=== PATIENT | male | born 1950 | race Caucasian/White ===

== ENCOUNTER 2017-12-10 12:10 | Emergency (ER) | payer MEDICARE, OTHER ==
--- NOTE | 2017-12-10 13:08 | Emergency Department Record ---
History of Present Illness - General Chief Complaint: Laceration(s) Stated Complaint: LACERATION Time Seen by Provider: 12/10/17 13:08 Source: Patient Mode of Arrival: Ambulatory - History of Present Illness Initial Commments: the patient was using a new razor blade when it slipped and cut the back of his left thumb about 1 hour ago. He is UTD on his tetanus. Onset/Timin -: Minutes(s) Treatments Prior to Arrival: Other Treatment Prior to Arrival Comment:: pressure - [place] Coma Scale Eye Response: (4) Open spontaneously Motor Response: (6) Obeys commands Verbal Response: (5) Oriented [place] Total: 15 - Related Data Patient Tetanus UTD (within 5 yrs): Yes Home Medications Medication Instructions Recorded Confirmed Last Taken Bupropion HCl [Wellbutrin Xl] 300 mg PO QHS 12/10/17 12/10/17 12/09/17 Cetirizine HCl [Zyrtec] 10 mg PO DAILY 12/10/17 12/10/17 12/10/17 Cholecalciferol (Vitamin D3) 2,000 unit PO DAILY 12/10/17 12/10/17 12/10/17 [Vitamin D3] Cyclobenzaprine HCl 10 mg PO ASDIR 12/10/17 12/10/17 12/09/17 Glipizide 10 mg PO DAILY 12/10/17 12/10/17 12/10/17 Lisinopril 2.5 mg PO DAILY 12/10/17 12/10/17 12/10/17 Simvastatin [Zocor] 40 mg PO QHS 12/10/17 12/10/17 12/09/17 Allergies Allergy/AdvReac Type Severity Reaction Status Date / Time No Known Drug Allergies Allergy Verified 12/10/17 12:18 Travel Screening - Travel/Exposure Within Last 30 Days Have you traveled within the last 30 days?: No - Travel/Exposure Within Last Year Have you traveled outside the [place] in the last year?: No - Additonal Travel Details Have you been exposed to anyone with a communicable illness?: No - Travel Symptoms Symptom Screening: None Review of Systems Reviewed: No additional complaints except as noted below Constitutional: Reports: As per HPI. Denies: Chills, Fever, Malaise, Night sweats, Weakness, Weight change Eyes: Reports: As per HPI. Denies: Eye discharge, Eye pain, Photophobia, Vision change ENT: Reports: As per HPI. Denies: Congestion, Dental pain, Ear pain, Epistaxis , Hearing loss, Throat pain Respiratory: Reports: As per HPI. Denies: Cough, Dyspnea, Hemoptysis, Stridor, Wheezes Cardiovascular: Reports: As per HPI. Denies: Arrhythmia, Chest pain, Dyspnea on exertion, Edema, Murmurs, Orthopnea, Palpitations, Paroxysmal nocturnal dyspnea, Rheumatic Fever, Syncope Endocrine: Reports: As per HPI. Denies: Fatigue, Heat or cold intolerance, Polydipsia, Polyuria Gastrointestinal: Reports: As per HPI. Denies: Abdominal pain, Constipation, Diarrhea, Hematemesis, Hematochezia, Melena, Nausea, Vomiting Genitourinary: Reports: As per HPI. Denies: Dysuria, Frequency, Hematuria, Incontinence, Retention, Testicular pain, Testicular mass, Urgency Musculoskeletal: Reports: As per HPI. Denies: Arthralgia, Back pain, Gout, Joint swelling, Myalgia, Neck pain Skin: Reports: As per HPI. Denies: Bruising, Change in color, Change in hair/ nails, Lesions, Pruritus, Rash Neurological: Reports: As per HPI. Denies: Abnormal gait, Confusion, Headache, Numbness, Paresthesias, Seizure, Tingling, Tremors, Vertigo, Weakness Psychiatric: Reports: As per HPI. Denies: Anxiety, Auditory hallucinations, Depression, Homicidal thoughts, Suicidal thoughts, Visual hallucinations Hematological/Lymphatic: Reports: As per HPI. Denies: Anemia, Blood Clots, Easy bleeding, Easy bruising, Swollen glands Past Medical History - SOCIAL HISTORY Smoking Status: Never smoker Alcohol Use: None Drug Use: None - RESPIRATORY Hx Respiratory Disorders: No - CARDIOVASCULAR Hx Cardio Disorders: Yes Hx Hypertension: Yes - NEURO Hx Neuro Disorders: No - GI Hx GI Disorders: No - Hx Genitourinary Disorders: No - ENDOCRINE Hx Endocrine Disorders: Yes Hx Diabetes: Yes (Diet controlled) - MUSCULOSKELETAL Hx Musculoskeletal Disorders: Yes Hx Arthritis: Yes - PSYCH Hx Psych Problems: Yes Hx Depression: Yes - HEMATOLOGY/ONCOLOGY Hx Hematology/Oncology Disorders: Yes Hx Cancer: Yes (basal cell ca) Family Medical History Any Significant Family History?: No Physical Exam - General General Appearance: Alert, Oriented x3, Cooperative, No acute distress - Head Head exam: Normal inspection - Eye Eye exam: Normal appearance, PERRL Pupils: Normal accommodation - ENT ENT exam: Normal exam, Mucous membranes moist, Normal external ear exam, Normal orophraynx, TM's normal bilaterally Ear exam: Normal external inspection. negative: External canal tenderness Nasal Exam: Normal inspection. negative: Discharge, Sinus tenderness Mouth exam: Normal external inspection, Tongue normal Teeth exam: Normal inspection. negative: Dental caries Throat exam: Normal inspection. negative: Tonsillar erythema, Tonsillar exudate - Neck Neck exam: Normal inspection, Full ROM. negative: Tenderness - Respiratory Respiratory exam: Normal lung sounds bilaterally. negative: Respiratory distress - Cardiovascular Cardiovascular Exam: Regular rate, Normal rhythm, Normal heart sounds - GI/Abdominal GI/Abdominal exam: Soft, Normal bowel sounds. negative: Tenderness - Rectal Rectal exam: Deferred - exam: Deferred - Extremities Extremities exam: Normal inspection, Full ROM, Normal capillary refill. negative: Tenderness Image of Hand: 1 - razor-fine linear superficial lac to dorsal thumb with NO tendon involvement. CMS and ROM intact. - Back Back exam: Reports: Normal inspection, Full ROM. Denies: Muscle spasm, Rash noted, Tenderness - Neurological Neurological exam: Alert, Normal gait, Oriented X3, Reflexes normal - Psychiatric Psychiatric exam: Normal affect, Normal mood - Skin Skin exam: Dry, Intact, Normal color, Warm Course Vital Signs 12/10/17 12:10 Temperature 99.0 F Pulse Rate 86 Respiratory 16 Rate Blood Pressure 114/83 Pulse Ox 97 Medical Decision Making - Management Options MDM Management: No Additional Work-up Planned Disposition Disposition: Discharge Clinical Impression: Laceration of thumb Qualifiers: Encounter type: initial encounter Damage to nail status: without damage Foreign body presence: without foreign body Laterality: left Qualified Code(s): S61.012A - Laceration without foreign body of left thumb without damage to nail , initial encounter Disposition: Home, Self-Care Condition: (1) Good Instructions: Laceration (ED) Additional Instructions: Allow steri strips to wear off --7-10 days. Keep clean, dry, and covered. Forms: Patient Portal Access Quality - Quality Measures Quality Measures: N/A - Blood Pressure Screening Does Patient Have Any of the Following: No Blood Pressure Classification: Pre-Hypertensive BP Reading Systolic Measurement: 114 Diastolic Measurement: 83 Screening for High Blood Pressure: < Normal BP, F/U Not Required > [G8783]
== END 2017-12-10 13:37 | disposition home or self-care (01) ==
LOC: ER 12:10
DX: S61.012A Laceration without foreign body of left thumb without damage to nail, initial encounter (principal); W26.8XXA Contact with other sharp object(s), not elsewhere classified, initial encounter; I10 Essential (primary) hypertension
CPT/HCPCS: 99282

== ENCOUNTER 2018-10-25 19:19 | Emergency (ER) | payer MEDICARE, OTHER ==
[2018-10-25] MEDS ORDERED: ACETAMINOPHEN 500 MG TABLET PO ONE (19:42)
--- NOTE | 2018-10-25 19:42 | Emergency Department Record ---
History of Present Illness - General Chief complaint: Lower Extremity Pain Stated complaint: PIAIN IN RT LEG Time Seen by Provider: 10/25/18 19:28 Source: Patient Mode of Arrival: Ambulatory Limitations: No limitations - History of Present Illness Initial comments: 68 yo male presents with lateral right knee pain. He was getting up from the seated position two days ago and felt a pain with a pop sensation over the lateral right knee. The pain has persisted with moving and weight bearing. No swelling. No numbness, tingling or weakness. No fevers. He has mild chronic pain in the knee for about a year. No history of knee disease or prior surgery. MD Complaint: Joint pain (Right knee) Onset/Timin -: Days(s) Location: Right, Knee History of Same: No -: Yes Arthralgia Radiation: None Severity scale (1-10): 6 Quality: Dull Consistency: Constant Improves with: Nothing Worsens with: Rest, Walking, Weight bearing Associated Symptoms: Denies other symptoms - Related Data Allergies Allergy/AdvReac Type Severity Reaction Status Date / Time No Known Drug Allergies Allergy Verified 12/10/17 12:18 Travel Screening - Travel/Exposure Within Last 30 Days Have you traveled within the last 30 days?: No - Travel/Exposure Within Last Year Have you traveled outside the [place] in the last year?: No - Additonal Travel Details Have you been exposed to anyone with a communicable illness?: No - Travel Symptoms Symptom Screening: None Review of Systems Constitutional: Denies: Chills, Fever, Malaise, Weakness Eyes: Denies: Eye discharge ENT: Denies: Congestion, Throat pain Respiratory: Denies: Cough Cardiovascular: Denies: Chest pain Endocrine: Denies: Fatigue Gastrointestinal: Denies: Abdominal pain, Diarrhea, Nausea, Vomiting Musculoskeletal: Reports: Arthralgia, Myalgia. Denies: Back pain, Joint swelling, Neck pain Skin: Denies: Bruising, Change in color Neurological: Denies: Headache Psychiatric: Denies: Anxiety Hematological/Lymphatic: Denies: Blood Clots, Easy bleeding, Easy bruising Past Medical History - SOCIAL HISTORY Smoking Status: Former smoker Alcohol Use: None Drug Use: None - RESPIRATORY Hx Respiratory Disorders: Yes Hx Asthma: No Hx Bronchitis: Yes (hx of 20 yrs ago) Hx COPD: No Hx Pneumonia: No Hx Pulmonary Embolism: Yes (hx of 20 yrs ago) Hx Tuberculosis: No - CARDIOVASCULAR Hx Cardio Disorders: Yes Hx Abnormal EKG: No Hx Cardiac Cath: Yes (came back normal) Hx Chest Pain: No Hx CHF: No Hx Deep Vein Thrombosis: No Hx Edema: No Hx Heart Attack: No Hx Hypertension: No Hx Hypotension: Yes Hx Irregular Heartbeat: No Hx Palpitations: No Hx Pacemaker/Defib: No Hx Coronary Artery Disease: No Hx Coronary Artery Bypass Graft: No Hx Coronary Stent: No Comment:: high cholesterol - NEURO Hx Neuro Disorders: No Hx CVA: No Hx Dizziness: No Hx Headaches: No Hx of Migraines: No Hx Parkinson's Disease: No Hx Seizures: No Hx Speech Problem: No Hx TIA: No Hx Weakness: No - GI Hx GI Disorders: Yes Hx Abdominal Pain: No Hx Diverticulitis: No Hx Reflux: Yes Hx Hepatitis/Jaundice: No Hx Irritable Bowel: No Hx Liver Disease: No Hx Nausea/Vomiting: No Hx Pancreatitis: No Hx Ulcer: Yes Hx Cirrhosis: No Hx of Polyps: Yes (possibly) - Hx Genitourinary Disorders: No Hx Bladder Problem: No Hx Dialysis: No Hx Kidney Stones: No Hx Prostate Problems: No Hx Renal Disease: No Hx UTI: No - ENDOCRINE Hx Endocrine Disorders: Yes Hx Diabetes: Yes (medication) Hx Thyroid Disease: No - MUSCULOSKELETAL Hx Musculoskeletal Disorders: Yes Hx Arthritis: Yes Comment:: tendon surgery - PSYCH Hx Psych Problems: Yes Hx Depression: Yes (hx of when divorce) - HEMATOLOGY/ONCOLOGY Hx Hematology/Oncology Disorders: Yes Hx Cancer: Yes (basal cell ca) Family Medical History Any Significant Family History?: Yes Family Hx Comment (NOT TO BE USED IN PLACE OF ITEMS BELOW): Father - cancer Hx Cancer: Father Physical Exam - General General Appearance: Alert, Oriented x3, Cooperative, No acute distress Limitations: No limitations - Head Head exam: Atraumatic, Normal inspection - Eye Eye exam: Normal appearance. negative: Conjunctival injection - ENT ENT exam: Normal exam, Mucous membranes moist Ear exam: Normal external inspection Nasal Exam: Normal inspection Mouth exam: Normal external inspection - Neck Neck exam: Normal inspection - Cardiovascular Cardiovascular Exam: Regular rate, Normal rhythm, Normal heart sounds - GI/Abdominal GI/Abdominal exam: Soft. negative: Tenderness - Rectal Rectal exam: Deferred - exam: Deferred - Extremities Extremities exam: Normal inspection, Full ROM, Tenderness. negative: Calf tenderness, Joint swelling, Normal capillary refill, Pedal edema Image of Full Body: 1 - lateral joint line tenderness, no swelling, no redness, stable with anterior and posterior drawer. Pain with twisting. - Back Back exam: Denies: CVA tenderness (R), CVA tenderness (L) - Neurological Neurological exam: Alert, Oriented X3 - Psychiatric Psychiatric exam: negative: Agitated, Anxious - Skin Skin exam: Dry, Intact, Normal color, Warm. negative: Erythema Course Vital Signs 10/25/18 19:27 Temperature 98.3 F Pulse Rate 86 Respiratory 18 Rate Blood Pressure 119/78 Pulse Ox 98 - Reevaluation(s) Reevaluation #1: 10/25/18 20:18 The XR was reviewed. Degenerative changes noted throughout all three compartments. Lateral compartment changes noted. 10/25/18 20:19 10/25/18 20:[address] [facility] orthopedics. He has crutches and he will get a cane as well for support Disposition Disposition: Discharge Clinical Impression: Strain of knee and leg, right Disposition: Home, Self-Care Condition: (1) Good Instructions: Knee Pain (ED) Additional Instructions: Ice the knee to prevent swelling and to reduce pain You have been referred to Dr Motley for the one year of knee pain with the new pain you are now having Referrals: SERINA MOTLEY [DOCTOR OF OSTEOPATH] - [facility] Special[facility] [Provider Group] Forms: Patient Portal Access Time of Disposition: 20:28 Quality - Quality Measures Quality Measures: N/A - Blood Pressure Screening Does Patient Have Any of the Following: Active Dx of HTN Blood Pressure Classification: Pre-Hypertensive BP Reading Systolic Measurement: 135 Diastolic Measurement: 80 Screening for High Blood Pressure: Patient Exclusion, Hx of HTN [G9744]
--- NOTE | 2018-10-28 10:39 | RADIOLOGY REPORT ---
EXAM: RIGHT KNEE HISTORY: PAIN. TECHNIQUE: Four views of the right knee were performed. FINDINGS: There is tricompartmental joint space narrowing with hypertrophic spurring. Small joint effusion. No evidence of fracture or dislocation. IMPRESSION: TRICOMPARTMENTAL DEGENERATIVE CHANGE. SMALL JOINT EFFUSION. JOB NUMBER: [id number] MTDD
== END 2018-10-25 20:34 | disposition home or self-care (01) ==
LOC: ER 19:19
DX: S83.91XA Sprain of unspecified site of right knee, initial encounter (principal); X50.0XXA Overexertion from strenuous movement or load, initial encounter; Z87.891 Personal history of nicotine dependence
CPT/HCPCS: 99283

== ENCOUNTER 2018-11-01 07:30 | Day surgery (SDC) | payer MEDICARE, OTHER ==
[2018-11-01] MEDS ORDERED: PROPOFOL 10 MG/ML VIAL IV ONE (07:31)
[2018-11-01] MEDS ORDERED: FENTANYL PF 100MCG/2ML VIAL IV ONE (07:31)
[2018-11-01] MEDS ORDERED: LIDOCAINE 2% MDV (20MG/ML) 20ML VIAL IV ONE (07:31)
--- NOTE | 2018-11-06 11:30 | Operative Note ---
DATE OF SURGERY: 11/01/2018 SURGEON: Junior Metz MD OPERATION: ESOPHAGOGASTRODUODENOSCOPY. INDICATIONS: This is a This is a 68-year-old male with history of intermittent episodes of dysphagia who presented for esophagogastroduodenoscopy. POSTOPERATIVE DIAGNOSES: 1. Diffuse gastritis and duodenitis with mild duodenal stricture. 2. Normal esophagus with no specific strictures, status post Cuellar dilatation to 60-Kosovan and biopsies to rule out eosinophilic esophagitis. ANESTHESIA: Sedation is per Anesthesia. Pulse oximetry was monitored throughout the procedure to maintain O2 saturation of 90% or greater. Supplemental oxygen was administered via nasal cannula. Cardiac and vital signs were monitored throughout the duration of the procedure, and they were stable. The procedure of esophagogastroduodenoscopy and risks and benefits of the procedure, including the risk of bleeding and perforation, among others, were explained to the patient who voiced understanding and agreed to have the procedure done. Physical examination was performed, and the patient was found stable for sedation. PROCEDURE: The patient was placed in the left lateral position. Sedation was initiated. A plastic bite block was inserted into the oral cavity. The Olympus [id number] gastroscope was introduced into the oral cavity and advanced to the proximal esophagus without difficulty. The esophageal mucosa was carefully examined upon introduction of the gastroscope. The proximal and mid and distal esophageal mucosa appeared normal. The gastroscope was then advanced into the stomach, and surveillance of the stomach revealed diffuse erythema with erosions along the gastric body and antrum but no ulcers were noted. The gastroscope was then advanced to the descending duodenum without difficulty. The duodenal bulb and descending duodenum appeared mildly erythematous with mild duodenal stricture that was traversed with the gastroscope with no immediate complications. The gastroscope was then withdrawn into the stomach and retroflexion was performed. There were no other lesions noted. The gastroscope was then straightened and withdrawn while carefully examining the gastric and esophageal mucosa. No other lesions noted. Multiple gastric and mid esophageal biopsies were obtained. He remained with stable vital signs. Cuellar dilator size 60-Kosovan was advanced into the stomach with minimal resistance. The Cuellar dilator was then removed and the procedures were terminated. The patient tolerated procedure well without immediate complications. He remained with stable vital signs and was transferred to the recovery room. RECOMMENDATIONS: 1. The patient is to be on his proton pump inhibitors. 2. I would be happy to see him back in the office as needed. Thank you for allowing me to participate in the care of your patient. CC: Amrita BELTRAN
== END 2018-11-01 09:35 | disposition home or self-care (01) ==
LOC: HOP 07:30
PROVIDERS: ATTEND Internal Medicine Gastroenterology
DX: R13.10 Dysphagia, unspecified (principal); K29.70 Gastritis, unspecified, without bleeding; K29.80 Duodenitis without bleeding; K31.5 Obstruction of duodenum; I10 Essential (primary) hypertension; E78.00 Pure hypercholesterolemia, unspecified; E11.9 Type 2 diabetes mellitus without complications
CPT/HCPCS: 43239; 43450; 00731; 88305; J3010

== ENCOUNTER 2019-09-13 16:26 | Emergency (ER) | payer MEDICARE, OTHER ==
--- NOTE | 2019-09-13 16:48 | Emergency Department Record ---
History of Present Illness - General Chief Complaint: Dizziness Stated Complaint: DIZZINESS/NAUSEA Time Seen by Provider: 09/13/19 16:40 Source: Patient, RN notes reviewed Mode of Arrival: Ambulatory - History of Present Illness Initial Comments: spinning sensation when he moves his head. Complaint: Dizziness Onset/Timin -: Hour(s) Timing: Gradual onset Description: Difficulty walking, Lightheadedness, Off-balance History of Same: No History of Trauma: No Severity: Moderate Improves With: Remaining still Worsens With: Movement Associated Symptoms: Denies other symptoms - [place] Coma Scale Eye Response: (4) Open spontaneously Motor Response: (6) Obeys commands Verbal Response: (5) Oriented [place] Total: 15 - Related Data Home Medications Medication Instructions Recorded Confirmed Last Taken Nateglinide [Starlix] 60 mg PO TID 09/13/19 09/13/19 09/13/19 Allergies Allergy/AdvReac Type Severity Reaction Status Date / Time No Known Drug Allergies Allergy Verified 09/13/19 16:31 Travel Screening - Travel/Exposure Within Last 30 Days Have you traveled within the last 30 days?: No - Travel/Exposure Within Last Year Have you traveled outside the [place] in the last year?: No - Additonal Travel Details Have you been exposed to anyone with a communicable illness?: No - Travel Symptoms Symptom Screening: None Review of Systems Reviewed: No additional complaints except as noted below Constitutional: Reports: As per HPI. Denies: Chills, Fever, Malaise, Night sweats, Weakness, Weight change Eyes: Reports: As per HPI. Denies: Eye discharge, Eye pain, Photophobia, Vision change ENT: Reports: As per HPI. Denies: Congestion, Dental pain, Ear pain, Epistaxis, Hearing loss, Throat pain Respiratory: Reports: As per HPI. Denies: Cough, Dyspnea, Hemoptysis, Stridor, Wheezes Cardiovascular: Reports: As per HPI. Denies: Arrhythmia, Chest pain, Dyspnea on exertion, Edema, Murmurs, Orthopnea, Palpitations, Paroxysmal nocturnal dyspnea, Rheumatic Fever, Syncope Endocrine: Reports: As per HPI. Denies: Fatigue, Heat or cold intolerance, Polydipsia, Polyuria Gastrointestinal: Reports: As per HPI. Denies: Abdominal pain, Constipation, Diarrhea, Hematemesis, Hematochezia, Melena, Nausea, Vomiting Genitourinary: Reports: As per HPI. Denies: Dysuria, Frequency, Hematuria, Incontinence, Retention, Testicular pain, Testicular mass, Urgency Musculoskeletal: Reports: As per HPI. Denies: Arthralgia, Back pain, Gout, Joint swelling, Myalgia, Neck pain Skin: Reports: As per HPI. Denies: Bruising, Change in color, Change in hair/nails, Lesions, Pruritus, Rash Neurological: Reports: As per HPI. Denies: Abnormal gait, Confusion, Headache, Numbness, Paresthesias, Seizure, Tingling, Tremors, Vertigo, Weakness Psychiatric: Reports: As per HPI. Denies: Anxiety, Auditory hallucinations, Depression, Homicidal thoughts, Suicidal thoughts, Visual hallucinations Hematological/Lymphatic: Reports: As per HPI. Denies: Anemia, Blood Clots, Easy bleeding, Easy bruising, Swollen glands Past Medical History - SOCIAL HISTORY Smoking Status: Former smoker Alcohol Use: None Drug Use: None - RESPIRATORY Hx Respiratory Disorders: Yes Hx Asthma: No Hx Bronchitis: Yes (hx of 20 yrs ago) Hx COPD: No Hx Pneumonia: No Hx Pulmonary Embolism: Yes (hx of 20 yrs ago) Hx Tuberculosis: No - CARDIOVASCULAR Hx Cardio Disorders: Yes Hx Hypertension: No Comment:: high cholesterol - NEURO Hx Neuro Disorders: No Hx CVA: No Hx Dizziness: No Hx Headaches: No Hx of Migraines: No Hx Parkinson's Disease: No Hx Seizures: No Hx Speech Problem: No Hx TIA: No Hx Weakness: No - GI Hx GI Disorders: Yes Hx Abdominal Pain: No Hx Diverticulitis: No Hx Reflux: Yes Hx Hepatitis/Jaundice: No Hx Irritable Bowel: No Hx Liver Disease: No Hx Nausea/Vomiting: No Hx Pancreatitis: No Hx Ulcer: Yes Hx Cirrhosis: No Hx of Polyps: Yes (possibly) - Hx Genitourinary Disorders: No Hx Bladder Problem: No Hx Dialysis: No Hx Kidney Stones: No Hx Prostate Problems: No Hx Renal Disease: No Hx UTI: No - ENDOCRINE Hx Endocrine Disorders: Yes Hx Diabetes: Yes (medication) Hx Thyroid Disease: No - MUSCULOSKELETAL Hx Musculoskeletal Disorders: Yes Hx Arthritis: Yes Comment:: tendon surgery - PSYCH Hx Psych Problems: Yes Hx Depression: Yes (hx of when divorce) - HEMATOLOGY/ONCOLOGY Hx Hematology/Oncology Disorders: Yes Hx Cancer: Yes (basal cell ca) Family Medical History Any Significant Family History?: Yes Family Hx Comment (NOT TO BE USED IN PLACE OF ITEMS BELOW): Father - cancer Hx Cancer: Father Physical Exam - General General Appearance: Alert, Oriented x3, Cooperative, No acute distress - Head Head exam: Normal inspection - Eye Eye exam: Normal appearance, PERRL Pupils: Normal accommodation - ENT ENT exam: Normal exam, Mucous membranes moist, Normal external ear exam, Normal orophraynx, TM's normal bilaterally Ear exam: Normal external inspection. negative: External canal tenderness Nasal Exam: Normal inspection. negative: Discharge, Sinus tenderness Mouth exam: Normal external inspection, Tongue normal Teeth exam: Normal inspection. negative: Dental caries Throat exam: Normal inspection. negative: Tonsillar erythema, Tonsillar exudate - Neck Neck exam: Normal inspection, Full ROM. negative: Tenderness - Respiratory Respiratory exam: Normal lung sounds bilaterally. negative: Respiratory distress - Cardiovascular Cardiovascular Exam: Regular rate, Normal rhythm, Normal heart sounds - GI/Abdominal GI/Abdominal exam: Soft, Normal bowel sounds. negative: Tenderness - Rectal Rectal exam: Deferred - exam: Deferred - Extremities Extremities exam: Normal inspection, Full ROM, Normal capillary refill. negative: Tenderness - Back Back exam: Reports: Normal inspection, Full ROM. Denies: Muscle spasm, Rash noted, Tenderness - Neurological Neurological exam: Alert, Normal gait, Oriented X3, Reflexes normal - Psychiatric Psychiatric exam: Normal affect, Normal mood - Skin Skin exam: Dry, Intact, Normal color, Warm Course Vital Signs 09/13/19 16:34 Temperature 98.7 F Pulse Rate 86 Respiratory 20 Rate Blood Pressure 120/84 Pulse Ox 97 Disposition Quality - Blood Pressure Screening Does Patient Have Any of the Following: No Blood Pressure Classification: Pre-Hypertensive BP Reading Systolic Measurement: 120 Diastolic Measurement: 84 Screening for High Blood Pressure: < Pre-Hypertensive BP, F/U Documented > [G8950]
[2019-09-13] MEDS ORDERED: MECLIZINE 25 MG TABLET PO ONE ×2 (18:08→19:47)
--- NOTE | 2019-09-13 18:16 | Emergency Department Record ---
History of Present Illness - General Chief Complaint: Dizziness Stated Complaint: DIZZINESS/NAUSEA Time Seen by Provider: 09/13/19 16:40 Source: Patient, Family, RN notes reviewed Mode of Arrival: Ambulatory Limitations: No limitations - History of Present Illness Initial Comments: 69 yo male presents with symptoms of feeling being lightheaded and dizzy. The onset was 1pm. He had been cutting wood just prior but did not have symptoms at that time or feel like he was over exerting. He has a very mild, vague feeling of dizziness and being lightheaded. The symptoms seem to occur with turning of the head or moving. He is not uncomfortable sitting. He feels like the top of his "head is numb" but it feels normal to the tough. No headache or pain, no vision changes, no speech changes, no weakness. No dysarthria. No memory changes. He is better if still. No chest pain, shortness of breath, or syncope. No palpitations. His PCP is Dr Joel. No history of stroke, CAD. He has DM. No recent changes in his health. He has been dealing with chronic right knee pain. He follows with Dr Waterbrook. MENSAH Complaint: Dizziness, Lightheadedness Onset/Timin -: Hour(s) Timing: Gradual onset Description: Difficulty walking, Lightheadedness, Off-balance History of Same: No History of Trauma: No Severity: Moderate Improves With: Remaining still Worsens With: Movement Associated Symptoms: Denies other symptoms - [place] Coma Scale Eye Response: (4) Open spontaneously Motor Response: (6) Obeys commands Verbal Response: (5) Oriented [place] Total: 15 - Symptoms of Stroke Symptoms of stroke: Dizziness - Related Data Home Medications Medication Instructions Recorded Confirmed Last Taken Nateglinide [Starlix] 60 mg PO TID 09/13/19 09/13/19 09/13/19 Previous Rx's Medication Instructions Recorded Meclizine HCl [Antivert] 25 mg PO Q8H #15 tablet 09/13/19 Allergies Allergy/AdvReac Type Severity Reaction Status Date / Time No Known Drug Allergies Allergy Verified 09/13/19 16:31 Travel Screening - Travel/Exposure Within Last 30 Days Have you traveled within the last 30 days?: No - Travel/Exposure Within Last Year Have you traveled outside the [place] in the last year?: No - Additonal Travel Details Have you been exposed to anyone with a communicable illness?: No - Travel Symptoms Symptom Screening: None Review of Systems Constitutional: Denies: Chills, Fever, Malaise, Night sweats, Weakness, Weight change Eyes: Denies: Eye discharge, Eye pain, Photophobia, Vision change ENT: Denies: Congestion, Dental pain, Ear pain, Epistaxis, Hearing loss, Throat pain Respiratory: Denies: Cough, Dyspnea, Hemoptysis, Stridor, Wheezes Cardiovascular: Denies: Arrhythmia, Chest pain, Dyspnea on exertion, Edema, Murmurs, Orthopnea, Palpitations, Syncope Endocrine: Denies: Fatigue, Polydipsia, Polyuria Gastrointestinal: Denies: Abdominal pain, Constipation, Diarrhea, Nausea, Vomiting Genitourinary: Denies: Dysuria, Frequency, Hematuria, Retention, Urgency Musculoskeletal: Reports: Arthralgia (chronic right knee pain). Denies: Back pain, Gout, Joint swelling, Myalgia, Neck pain Skin: Denies: Bruising, Change in color, Rash Neurological: Reports: As per HPI, Abnormal gait, Vertigo. Denies: Confusion, Headache, Numbness, Paresthesias, Seizure, Tingling, Tremors, Weakness Psychiatric: Denies: Anxiety Hematological/Lymphatic: Reports: As per HPI. Denies: Anemia, Blood Clots, Easy bleeding, Easy bruising Past Medical History - SOCIAL HISTORY Smoking Status: Former smoker Alcohol Use: None Drug Use: None - RESPIRATORY Hx Respiratory Disorders: Yes Hx Asthma: No Hx Bronchitis: Yes (hx of 20 yrs ago) Hx COPD: No Hx Pneumonia: No Hx Pulmonary Embolism: Yes (hx of 20 yrs ago) Hx Tuberculosis: No - CARDIOVASCULAR Hx Cardio Disorders: Yes Hx Hypertension: No Comment:: high cholesterol - NEURO Hx Neuro Disorders: No Hx CVA: No Hx Dizziness: No Hx Headaches: No Hx of Migraines: No Hx Parkinson's Disease: No Hx Seizures: No Hx Speech Problem: No Hx TIA: No Hx Weakness: No - GI Hx GI Disorders: Yes Hx Abdominal Pain: No Hx Diverticulitis: No Hx Reflux: Yes Hx Hepatitis/Jaundice: No Hx Irritable Bowel: No Hx Liver Disease: No Hx Nausea/Vomiting: No Hx Pancreatitis: No Hx Ulcer: Yes Hx Cirrhosis: No Hx of Polyps: Yes (possibly) - Hx Genitourinary Disorders: No Hx Bladder Problem: No Hx Dialysis: No Hx Kidney Stones: No Hx Prostate Problems: No Hx Renal Disease: No Hx UTI: No - ENDOCRINE Hx Endocrine Disorders: Yes Hx Diabetes: Yes (medication) Hx Thyroid Disease: No - MUSCULOSKELETAL Hx Musculoskeletal Disorders: Yes Hx Arthritis: Yes Comment:: tendon surgery - PSYCH Hx Psych Problems: Yes Hx Depression: Yes (hx of when divorce) - HEMATOLOGY/ONCOLOGY Hx Hematology/Oncology Disorders: Yes Hx Cancer: Yes (basal cell ca) Family Medical History Any Significant Family History?: Yes Family Hx Comment (NOT TO BE USED IN PLACE OF ITEMS BELOW): Father - cancer Hx Cancer: Father Physical Exam - General General Appearance: Alert, Oriented x3, Cooperative, No acute distress Limitations: No limitations - Head Head exam: Atraumatic, Normocephalic, Normal inspection - Eye Eye exam: Normal appearance, PERRL, EOMI. negative: Conjunctival injection, Nystagmus, Periorbital swelling, Periorbital tenderness, Scleral icterus Pupils: Normal accommodation. negative: Irregular, Unequal - ENT ENT exam: Normal exam, Mucous membranes moist, Normal orophraynx Ear exam: Normal external inspection Nasal Exam: Normal inspection Mouth exam: Normal external inspection Throat exam: Normal inspection - Neck Neck exam: Normal inspection, Full ROM. negative: Lymphadenopathy, Meningismus, Tenderness - Respiratory Respiratory exam: Normal lung sounds bilaterally. negative: Respiratory distr ess, Rhonchi, Stridor, Wheezes - Cardiovascular Cardiovascular Exam: Regular rate, Normal rhythm, Normal heart sounds Peripheral Pulses: 2+: Radial (R), Radial (L) - GI/Abdominal GI/Abdominal exam: Soft. negative: Tenderness - Rectal Rectal exam: Deferred - exam: Deferred - Extremities Extremities exam: Normal inspection, Tenderness (knee). negative: Calf tenderness, Pedal edema - Back Back exam: Denies: CVA tenderness (R), CVA tenderness (L) - Neurological Neurological exam: Alert, CN II-XII intact, Normal gait (ambulated normally in the ED. Only limitation was right knee pain), Oriented X3, Other (No PND, No Ataxia, No vision field deficits, ). negative: Abnormal gait, Altered, Motor sensory deficit - Psychiatric Psychiatric exam: Normal affect, Normal mood. negative: Agitated, Anxious - Skin Skin exam: Dry, Intact, Normal color, Warm Course Vital Signs 09/13/19 16:34 Temperature 98.7 F Pulse Rate 86 Respiratory 20 Rate Blood Pressure 120/84 Pulse Ox 97 - Reevaluation(s) Reevaluation #1: 09/13/19 18:16 EKG 18:03 Rate 75 Intervals QRS [address] No acute changes Prior none 09/13/19 18:30 The CBC is normal 09/13/19 18:49 The CMP was reviewed. No acute changes except glucose 191 09/13/19 18:52 The HCT scan report was reviewed. No acute intracranial process. Atrophy. Re tention cyst. 09/13/19 19:02 The patient ambulated to the restroom without limitation or difficulty except his chronic right knee pain. 09/13/19 19:16 09/13/19 19:46 On recheck the patient feels greatly improved after the antivert Repeat vitals are in the normal range I had a long discussion. The symptoms are very mild and not specific for a certain cause. No reproducible symptoms on examination. He does not have any firm finding to strongly suggest strong, arrhythmia, anemia, ACS. He has a mild vague feeling that is not reproducible on examination and better with antivert. I do not think this is currently a sign of stroke and I explained that it is likely benign with the patient and family, but we did discuss that it is always possible this is early and just the first symptom of something else so options include observation vs DC home and return if the symptoms return. He and his discussed this and the options. He lives close, has minimal to no symptoms, a very supportive family and prefers DC. He will call his PCP Sunday. We discussed at length reasons for immediate return to the ED. I also encourage him to discuss with his doctor the medical clearance for his an ticipated knee surgery. 09/13/19 19:49 Medical Decision Making - Lab Data Result diagrams: 09/13/19 16:40 09/13/19 16:40 Disposition Disposition: Discharge Clinical Impression: Dizziness Disposition: Home, Self-Care Condition: (1) Good Instructions: Dizziness (ED) Additional Instructions: Review this ER visit and the tests performed with your family doctor first of the week Call your doctor for the next available follow up appointment. Call on Sunday Return to the ER for a recheck immediately if any symptoms return or any other symptoms that we discussed occur Take the prescriptions provided as directed Prescriptions: Meclizine HCl [Antivert] 25 mg PO Q8H #15 tablet Forms: Patient Portal Access Time of Disposition: 19:51 Quality - Quality Measures Quality Measures: N/A - Blood Pressure Screening Does Patient Have Any of the Following: Active Dx of HTN Blood Pressure Classification: Pre-Hypertensive BP Reading Systolic Measurement: 120 Diastolic Measurement: 84 Screening for High Blood Pressure: Patient Exclusion, Hx of HTN [G9744] Pre-Hypertensive Follow-up Interventions: Referral to alternative/primary care provider.
[2019-09-13 18:26] LABS: ABSOLUTE NEUTROPHIL COUNT 3.49; BASO % 0.5 % (0-6); EOS % 3.3 % (0-6); GRAN % 57.9 % (47-80); HEMATOCRIT 46.3 % (42.0-52.0); HEMOGLOBIN 15.9 gm/dl (14.0-18.0); LYMPH % 29.7 % (16-45); MEAN CELL VOLUME 91.9 fl (81-97); MEAN CORPUSCULAR HEMOGLOBIN 31.5 pg (27-33); MEAN CORPUSCULAR HGB CONC 34.3 g/dl (32-36); MONO % 8.6 % (0-9); PLATELET COUNT 207 K/uL (130-400); RED BLOOD COUNT 5.04 M/uL (4.40-5.70); RED CELL DISTRIBUTION WIDTH 12.6 % (11.5-14.5)
[2019-09-13 18:41] LABS: BLOOD UREA NITROGEN 16 mg/dL (8-23); CREATININE 0.9 mg/dL (0.7-1.2); EST GLOMERULAR FILTRATION RATE > 60 mL/min
[2019-09-13 18:42] LABS: TOTAL PROTEIN 7.4 g/dL (6.6-8.7)
[2019-09-13 18:44] LABS: GLUCOSE,RANDOM 191 mg/dL (74-109)
[2019-09-13 18:46] LABS: ALB/GLOB RATIO 1.7 (1.1-1.8); ALBUMIN 4.7 g/dL (4.0-5.0); ALT/SGPT 22 U/L (<41); AST/SGOT 23 U/L (10.0-50.0)
[2019-09-13 18:47] LABS: ALKALINE PHOSPHATASE 88 U/L (40-129)
--- NOTE | 2019-09-13 18:48 | CT SCAN REPORT ---
EXAMINATION: CT Head without IV Contrast EXAM DATE: 09/13/2019 6:40 PM TECHNIQUE: Standard protocol CT images of the head were obtained without intravenous contrast. Holm l and sagittal reconstructed images were created. INDICATION: lightheaded and dizzy COMPARISON: None HAND DOMINANCE: Right. ENCOUNTER: Not applicable FINDINGS: 1. There is no intracranial mass, midline shift, extraaxial fluid collection or hemorrhage. 2. The ventricles, sulci and cisterns are normal. 3. Moderate generalized atrophy the brain. No abnormal attenuation in the white matter of the cerebr al hemispheres. No CT evidence of acute infarct. 4. There is no fracture. 5. Bilateral lens implants. Paranasal sinuses reveal small mucous retention cyst in the left maxilla ry sinus measuring 1.5 cm. Mastoid air cells are clear. IMPRESSION: 1. Moderate generalized atrophy of the brain. No acute intracranial process. 2. Small mucous retention cyst in the left maxillary sinus. Dictated by: Bernardino Mendez MD on 09/13/2019 6:44 PM. .
== END 2019-09-13 20:09 | disposition home or self-care (01) ==
LOC: ER 16:26
DX: R42 Dizziness and giddiness (principal); R11.0 Nausea; R20.0 Anesthesia of skin; E11.9 Type 2 diabetes mellitus without complications; R26.2 Difficulty in walking, not elsewhere classified; Z87.891 Personal history of nicotine dependence; Z79.84 Long term (current) use of oral hypoglycemic drugs
CPT/HCPCS: 70450; 80053; 85025; 93005; 93010; 99284

== ENCOUNTER 2019-09-14 00:21 | Observation (INO) | payer MEDICARE, OTHER ==
--- NOTE | 2019-09-14 00:41 | Emergency Department Record ---
History of Present Illness - General Chief complaint: Allergic Reaction Stated complaint: MATEO Time Seen by Provider: 09/14/19 00:29 Source: Patient, Family Mode of Arrival: Ambulatory Limitations: No limitations - History of Present Illness Initial Comments: 69 yo male presents with shaking chills that started at midnight. He reports that he could not get warm. He is not aware of any fever. He was seen in the ED earlier with a lightheaded dizzy feeling that resolved and has not returned. He now mentions that he has had three days of right upper gum tenderness and swelling and is concerned about possible infection. He has been pressing on the area without expression of pus but it is tender to the touch and swollen. No cough. No dizziness. No nausea, vomiting or diarrhea. No rash or hives. No dysuria. Dr Joel is his doctor. Complaint: Other (shaking and chills) Onset/Timin -: Minutes(s) Exposure: Medication Symptoms: Nausea Treatment Prior to Arrival: None Previous Allergy History: None - Related Data Previous Rx's Medication Instructions Recorded Meclizine HCl [Antivert] 25 mg PO Q8H #15 tablet 09/13/19 Allergies Allergy/AdvReac Type Severity Reaction Status Date / Time No Known Drug Allergies Allergy Verified 09/13/19 16:31 Travel Screening - Travel/Exposure Within Last 30 Days Have you traveled within the last 30 days?: No - Travel/Exposure Within Last Year Have you traveled outside the [place] in the last year?: No - Additonal Travel Details Have you been exposed to anyone with a communicable illness?: No Review of Systems Constitutional: Reports: Chills, Malaise, Weakness Eyes: Denies: Eye discharge ENT: Denies: Congestion, Throat pain Respiratory: Denies: Cough, Dyspnea, Hemoptysis, Stridor, Wheezes Cardiovascular: Denies: Chest pain, Syncope Endocrine: Reports: Fatigue Gastrointestinal: Denies: Abdominal pain, Diarrhea, Nausea, Vomiting Genitourinary: Denies: Dysuria, Frequency, Hematuria Musculoskeletal: Reports: Arthralgia (chronic right knee pain). Denies: Back pain, Myalgia Skin: Denies: Bruising, Change in color, Rash Neurological: Reports: Vertigo. Denies: Abnormal gait, Confusion, Headache, Numbness, Paresthesias, Tingling, Tremors, Weakness Psychiatric: Denies: Anxiety Hematological/Lymphatic: Denies: Easy bleeding, Easy bruising Past Medical History - SOCIAL HISTORY Smoking Status: Former smoker Alcohol Use: None Drug Use: None - RESPIRATORY Hx Respiratory Disorders: Yes Hx Asthma: No Hx Bronchitis: Yes (hx of 20 yrs ago) Hx COPD: No Hx Pneumonia: No Hx Pulmonary Embolism: Yes (hx of 20 yrs ago) Hx Tuberculosis: No - CARDIOVASCULAR Hx Cardio Disorders: Yes Hx Hypertension: No Comment:: high cholesterol - NEURO Hx Neuro Disorders: No Hx CVA: No Hx Dizziness: No Hx Headaches: No Hx of Migraines: No Hx Parkinson's Disease: No Hx Seizures: No Hx Speech Problem: No Hx TIA: No Hx Weakness: No - GI Hx GI Disorders: Yes Hx Abdominal Pain: No Hx Diverticulitis: No Hx Reflux: Yes Hx Hepatitis/Jaundice: No Hx Irritable Bowel: No Hx Liver Disease: No Hx Nausea/Vomiting: No Hx Pancreatitis: No Hx Ulcer: Yes Hx Cirrhosis: No Hx of Polyps: Yes (possibly) - Hx Genitourinary Disorders: No Hx Bladder Problem: No Hx Dialysis: No Hx Kidney Stones: No Hx Prostate Problems: No Hx Renal Disease: No Hx UTI: No - ENDOCRINE Hx Endocrine Disorders: Yes Hx Diabetes: Yes (medication) Hx Thyroid Disease: No - MUSCULOSKELETAL Hx Musculoskeletal Disorders: Yes Hx Arthritis: Yes Comment:: tendon surgery - PSYCH Hx Psych Problems: Yes Hx Depression: Yes (hx of when divorce) - HEMATOLOGY/ONCOLOGY Hx Hematology/Oncology Disorders: Yes Hx Cancer: Yes (basal cell ca) Family Medical History Any Significant Family History?: No Family Hx Comment (NOT TO BE USED IN PLACE OF ITEMS BELOW): Father - cancer Hx Cancer: Father Physical Exam - General General Appearance: Alert, Oriented x3, Cooperative, No acute distress Limitations: No limitations - Head Head exam: Atraumatic, Normocephalic, Normal inspection - Eye Eye exam: Normal appearance, PERRL. negative: Conjunctival injection, Scleral icterus - ENT ENT exam: Mucous membranes moist. negative: Normal exam, Mucous membranes dry, Normal orophraynx Ear exam: Normal external inspection Nasal Exam: Normal inspection Mouth exam: Tongue normal. negative: Drooling, Laceration, Muffled voice, Tongue elevation Teeth exam: Dental tenderness #, Gingival enlargement (tenderness and swelling right upper in the area of teeth 5, 6 and 7 consistent with infection). negative: Normal inspection Throat exam: Normal inspection. negative: Tonsillar erythema, Tonsillomegaly, Tonsillar exudate, L peritonsillar mass Image of Mouth/Teeth: 1 - gum swelling and tenderness, no pus expressed - Neck Neck exam: negative: Lymphadenopathy, Meningismus, Tenderness - Respiratory Respiratory exam: Normal lung sounds bilaterally. negative: Respiratory distress, Rhonchi, Stridor, Wheezes - Cardiovascular Cardiovascular Exam: Normal rhythm, Normal heart sounds, Tachycardia Peripheral Pulses: 2+: Radial (R), Radial (L) - GI/Abdominal GI/Abdominal exam: Soft. negative: Tenderness - Rectal Rectal exam: Deferred - exam: Deferred - Extremities Extremities exam: Normal inspection - Back Back exam: Denies: CVA tenderness (R), CVA tenderness (L), Tenderness - Neurological Neurological exam: Alert, CN II-XII intact, Normal gait, Oriented X3. negative: Abnormal gait, Altered, Motor sensory deficit - Psychiatric Psychiatric exam: Normal affect, Normal mood - Skin Skin exam: Dry, Intact, Normal color, Warm Course Vital Signs 09/14/19 00:24 Temperature 98.4 F Pulse Rate 122 H Respiratory 20 Rate Blood Pressure 135/99 Pulse Ox 97 - Reevaluation(s) Reevaluation #1: 09/14/19 01:48 The CBC was reviewed Normal WBC but 81% N 9% Bands Temp 99.8 He did have Motrin prior to arrival Based on his examination and the tender swollen area over the right upper gums I believe his symptoms are possibly from a dental infection at this time. UA was requested Given the shaking chills blood cultures were obtained He will be placed on antibiotics for the oral/dental infection and admitted for observation. 09/14/19 01:51 09/14/19 02:07 UA obtained. HR improved to 101. Systolic BP 159/103 09/14/19 02:24 UA is normal Observation orders placed Medical Decision Making - Lab Data Result diagrams: 09/15/19 06:22 09/14/19 09:42 Disposition Disposition: Admit Clinical Impression: Dental infection, Cellulitis of oral soft tissues Disposition: Still a Patient at [facility] Decision to Admit: Admit from ER Decision to Admit Date: 09/14/19 Decision to Admit Time: :07 Condition: (2) Stable Time of Disposition: :07 Quality - Quality Measures Quality Measures: N/A - Blood Pressure Screening Does Patient Have Any of the Following: Active Dx of HTN Blood Pressure Classification: Hypertensive Reading Systolic Measurement: 135 Diastolic Measurement: 99 Screening for High Blood Pressure: Patient Exclusion, Hx of HTN [G9744]
[2019-09-14 01:13] LABS: ABSOLUTE NEUTROPHIL COUNT 10.01; BASO % 0.3 % (0-6); EOS % 1.1 % (0-6); HEMATOCRIT 46.5 % (42.0-52.0); HEMOGLOBIN 15.7 gm/dl (14.0-18.0); LYMPH % 5.3 % (16-45); MEAN CELL VOLUME 92.1 fl (81-97); MEAN CORPUSCULAR HEMOGLOBIN 31.1 pg (27-33); MEAN CORPUSCULAR HGB CONC 33.8 g/dl (32-36); MEAN PLATELET VOLUME 9.2 fl (7.4-10.4); MONO % 2.3 % (0-9); PLATELET COUNT 173 K/uL (130-400); RED BLOOD COUNT 5.05 M/uL (4.40-5.70); RED CELL DISTRIBUTION WIDTH 12.5 % (11.5-14.5)
[2019-09-14] MEDS ORDERED: ACETAMINOPHEN 1,000 MG/100 ML BTL IVPB ONE (01:14)
[2019-09-14 01:46] LABS: PLATELET ESTIMATE NORMAL (NORMAL); TOXIC GRANULATION 1+
[2019-09-14] MEDS ORDERED: AMPICILLIN SODIUM/SULBACTAM NA 3 G in 0.9 % SODIUM CHLORIDE 100ML 100 ML IVPB ONE (01:48)
[2019-09-14 02:12] LABS: URINE APPEARANCE CLEAR; URINE BILIRUBIN NEGATIVE (NEGATIVE); URINE BLOOD NEGATIVE (NEGATIVE); URINE COLOR YELLOW; URINE KETONE NEGATIVE (NEGATIVE); URINE LEUKOCYTE ESTERASE NEGATIVE (NEGATIVE); URINE NITRITE NEGATIVE (NEGATIVE); URINE PROTEIN NEGATIVE (NEGATIVE); URINE UROBILINOGEN 0.2 E.U./dL (0.20 - 1.00)
[2019-09-14] MEDS ORDERED: AMPICILLIN SODIUM/SULBACTAM NA 1.5 G in 0.9 % SODIUM CHLORIDE 100ML 100 ML IVPB SCH (02:48)
[2019-09-14] MEDS ORDERED: ACETAMINOPHEN 500 MG TABLET PO PRN (02:48)
[2019-09-14] MEDS: 0.9 % SODIUM CHLORIDE 1000ML 1,000 ML IV ONE ×4 (02:56→03:15)
[2019-09-14] MEDS ORDERED: FLU VAC QS 2019-20 (INPT, 6MO+) 60MCG/0.5ML IM ONE (03:09)
[2019-09-14] MEDS: AMPICILLIN SODIUM/SULBACTAM NA 1.5 G in 0.9 % SODIUM CHLORIDE 100ML 100 ML IVPB SCH ×3 (08:38→19:41)
[2019-09-14] MEDS: LISINOPRIL 5 MG TABLET PO SCH (09:42)
[2019-09-14 09:43] LABS: HEMATOCRIT 40.9 % (42.0-52.0); HEMOGLOBIN 14.1 gm/dl (14.0-18.0); MEAN CELL VOLUME 91.5 fl (81-97); MEAN CORPUSCULAR HEMOGLOBIN 31.5 pg (27-33); MEAN CORPUSCULAR HGB CONC 34.5 g/dl (32-36); PLATELET COUNT 155 K/uL (130-400); RED BLOOD COUNT 4.47 M/uL (4.40-5.70); RED CELL DISTRIBUTION WIDTH 12.6 % (11.5-14.5); WHITE BLOOD COUNT W/O DIFF 10.4 K/uL (4.2-12.2)
[2019-09-14 10:00] LABS: BLOOD UREA NITROGEN 13 mg/dL (8-23); CREATININE 0.8 mg/dL (0.7-1.2); EST GLOMERULAR FILTRATION RATE > 60 mL/min; GLUCOSE,RANDOM 206 mg/dL (74-109)
[2019-09-14] MEDS ORDERED: GLIPIZIDE 5 MG TABLET PO SCH (10:00)
--- NOTE | 2019-09-14 11:13 | History & Physical ---
History of Present Illness - Date of Service Date of Service for History & Physical: 09/14/19 - History of Present Illness Admitting Diagnosis: oral cellulitis, dental infection History of Present Illness: 69 year old male patient presented to ED twice yesterday for differing complaints. Initial evaluation was for sudden onset dizziness. Patient repor ivanna dizziness upon standing that began around 1pm. Patient denied any chest pain, shortness of breath, syncope, or nausea with the dizziness. Reported symptoms to improve upon sitting. Workup at that time included an unremarkable CBC and CMP. Head CT indicated no intracranial mass, midline shift, extraaxial fluid collection or hemorrhage. EKG: rate 75, no acute ST changes. Patient was discharged home with Meclizine due to negative workup. Patient then returned later that night due to onset of chills. Patient noted to be shaking uncontrollably at home by , which started around midnight. Patient did not check his temperature at that time. Patient noted that the dizziness previously evaluated for had resolved. Patient did recall right upper gum tenderness for the past 3 days that he was treating with peroxide rinses at home. Patient denied noting any drainage from the affected area or previous abscess. Patient denied cough, vomiting, diarrhea, or urinary symptoms. Robyn ent's past medical history is significant for diabetes, high cholesterol, and multiple orthopedic surgeries. PCP: Dr. Joel ED Course: CBC: WBC 11 with neutrophils 81, bands 9 UA: negative Temp 99.8F Blood cultures drawn Started Unasyn 3gm in ED, 1.5gm q6h 09/14/19: Patient A&O x 4, resting comfortably in bed. Patient reports resolution of shaking and dizziness at this time. Has noted some improvement in gum swelling and pain since starting the antibiotics. Tolerating PO diet. Travel Screening - Travel/Exposure Within Last 30 Days Have you traveled within the last 30 days?: Yes Location Detail:: [place] - Travel/Exposure Within Last Year Have you traveled outside the [place] in the last year?: No - Additonal Travel Details Have you been exposed to anyone with a communicable illness?: Yes Exposure Details:: denominational - Travel Symptoms Symptom Screening: Joint & Muscle Aches, Weakness, Chills Review of Systems Reviewed: No additional complaints except as noted below Constitutional: Reports: Chills, Malaise, Weakness Eyes: Denies: Eye discharge ENT: Reports: Dental pain. Denies: Congestion, Throat pain Respiratory: Denies: Cough, Dyspnea, Hemoptysis, Stridor, Wheezes Cardiovascular: Denies: Chest pain, Syncope Endocrine: Reports: Fatigue Gastrointestinal: Denies: Abdominal pain, Diarrhea, Nausea, Vomiting Genitourinary: Denies: Dysuria, Frequency, Hematuria Musculoskeletal: Reports: Arthralgia (chronic right knee pain). Denies: Back pain, Myalgia Skin: Denies: Bruising, Change in color, Rash Neurological: Reports: Vertigo. Denies: Abnormal gait, Confusion, Headache, Numbness, Paresthesias, Tingling, Tremors, Weakness Psychiatric: Denies: Anxiety Hematological/Lymphatic: Denies: Easy bleeding, Easy bruising Past Medical History - SOCIAL HISTORY Smoking Status: Former smoker Alcohol Use: None Drug Use: None - RESPIRATORY Hx Respiratory Disorders: Yes Hx Asthma: No Hx Bronchitis: Yes (hx of 20 yrs ago) Hx COPD: No Hx Pneumonia: No Hx Pulmonary Embolism: Yes (hx of 20 yrs ago) Hx Tuberculosis: No - CARDIOVASCULAR Hx Cardio Disorders: Yes Hx Hypertension: No Comment:: high cholesterol - NEURO Hx Neuro Disorders: No Hx CVA: No Hx Dizziness: No Hx Headaches: No Hx of Migraines: No Hx Parkinson's Disease: No Hx Seizures: No Hx Speech Problem: No Hx TIA: No Hx Weakness: No - GI Hx GI Disorders: Yes Hx Abdominal Pain: No Hx Diverticulitis: No Hx Reflux: Yes Hx Hepatitis/Jaundice: No Hx Irritable Bowel: No Hx Liver Disease: No Hx Nausea/Vomiting: No Hx Pancreatitis: No Hx Ulcer: Yes Hx Cirrhosis: No Hx of Polyps: Yes (possibly) - Hx Genitourinary Disorders: No Hx Bladder Problem: No Hx Dialysis: No Hx Kidney Stones: No Hx Prostate Problems: No Hx Renal Disease: No Hx UTI: No - ENDOCRINE Hx Endocrine Disorders: Yes Hx Diabetes: Yes (medication) Hx Thyroid Disease: No - MUSCULOSKELETAL Hx Musculoskeletal Disorders: Yes Hx Arthritis: Yes Comment:: tendon surgery - PSYCH Hx Psych Problems: Yes Hx Depression: Yes (hx of when divorce) - HEMATOLOGY/ONCOLOGY Hx Hematology/Oncology Disorders: Yes Hx Cancer: Yes (basal cell ca) Family Medical History Any Significant Family History?: No Family Hx Comment (NOT TO BE USED IN PLACE OF ITEMS BELOW): Father - cancer Hx Cancer: Father H&P Meds/Allergies - Allergies Allergies: Allergies Allergy/AdvReac Type Severity Reaction Status Date / Time No Known Drug Allergies Allergy Verified 09/13/19 16:31 - Home Medications Previous Rx's Medication Instructions Recorded Meclizine HCl [Antivert] 25 mg PO Q8H #15 tablet 09/13/19 - Active Medications Active Medications: Current Medications Acetaminophen (Tylenol 500mg Tab) 1,000 mg PO Q6H PRN PRN Reason: PAIN - MILD(1-4)/FEVER Bupropion HCl (Wellbutrin Sr) 150 mg PO BID [facility] Glipizide (Glucotrol) 10 mg PO DAILY [facility] Last Admin: 09/14/19 09:50 Dose: Not Given Documented by: Sodium Chloride () 1,000 mls @ 100 mls/hr IV .Q10H ONE Stop: 09/14/19 12:47 Last Admin: 09/14/19 03:15 Dose: 100 mls/hr Documented by: Ampicillin Sodium/Sulbactam (Sodium 1.5 g/ Sodium Chloride) 100 mls @ 200 mls/hr IVPB Q6H [facility] Stop: 09/19/19 08:31 Last Infusion: 09/14/19 09:38 Dose: Infused Documented by: Ibuprofen (Motrin 400mg) 400 mg PO Q6H PRN PRN Reason: PAIN - MILD (1-4) Lisinopril (Zestril) 2.5 mg PO DAILY [facility] Last Admin: 09/14/19 09:42 Dose: 2.5 mg Documented by: Non-Formulary Medication (Nateglinide [Starlix]) 60 mg PO TID [facility] Simvastatin (Zocor) 40 mg PO QHS [facility] Physical Exam - Vital Signs Vital Signs: Vital Signs - Last 24 Hrs Temp Pulse Pulse Pulse Pulse Resp BP 09/14/19 07:43 98.7 F 81 16 09/14/19 06:40 93 H 16 09/14/19 03:41 98.7 F 100 H 16 09/14/19 02:21 99.6 F 103 H 18 09/14/19 01:17 99.8 F H 09/14/19 00:24 98.4 F 122 H 20 135/99 BP BP Pulse Ox 09/14/19 07:43 87/55 96 09/14/19 06:40 09/14/19 03:41 92/61 94 L 09/14/19 02:21 112/68 94 L 09/14/19 01:17 09/14/19 00:24 97 - General General Appearance: Alert, Oriented x3, Cooperative, No acute distress Limitations: No limitations - Head Head exam: Atraumatic, Normocephalic, Normal inspection - Eye Eye exam: Normal appearance, PERRL. negative: Conjunctival injection, Scleral icterus - ENT ENT exam: Mucous membranes moist. negative: Normal exam, Mucous membranes dry, Normal orophraynx Ear exam: Normal external inspection Nasal Exam: Normal inspection Mouth exam: Tongue normal. negative: Drooling, Laceration, Muffled voice, Tongue elevation Teeth exam: Dental tenderness #, Gingival enlargement (tenderness and swelling right upper in the area of teeth 5, 6 and 7 consistent with infection). negative: Normal inspection Throat exam: Normal inspection. negative: Tonsillar erythema, Tonsillomegaly, Tonsillar exudate, L peritonsillar mass - Neck Neck exam: negative: Lymphadenopathy, Meningismus, Tenderness - Respiratory Respiratory exam: Normal lung sounds bilaterally. negative: Respiratory distress, Rhonchi, Stridor, Wheezes - Cardiovascular Cardiovascular Exam: Normal rhythm, Normal heart sounds, Tachycardia Peripheral Pulses: 2+: Radial (R), Radial (L), Dorsalis Pedis (R), Dorsalis Pedis (L) - GI/Abdominal GI/Abdominal exam: Soft. negative: Tenderness - Rectal Rectal exam: Deferred - exam: Deferred - Extremities Extremities exam: Normal inspection - Back Back exam: Denies: CVA tenderness (R), CVA tenderness (L), Tenderness - Neurological Neurological exam: Alert, CN II-XII intact, Normal gait, Oriented X3. negative: Abnormal gait, Altered, Motor sensory deficit - Psychiatric Psychiatric exam: Normal affect, Normal mood - Skin Skin exam: Dry, Intact, Normal color, Warm Results - Labs Result Diagrams: 09/14/19 09:42 09/14/19 09:42 Labs Last 24 Hours: Laboratory Results - last 24 hr 09/14/19 09/14/19 09/14/19 01:00 02:05 09:42 WBC 11.0 10.4 RBC 5.05 4.47 Hgb 15.7 14.1 Hct 46.5 40.9 L MCV 92.1 91.5 MCH 31.1 31.5 MCHC 33.8 34.5 RDW 12.5 12.6 Plt Count 173 155 MPV 9.2 9.0 Neutrophils % 81.0 H 88.0 H Band Neutrophils % 9.0 H Lymphocytes % 5.3 L Monocytes % 2.3 Eosinophils % 1.1 Not Reportable Basophils % 0.3 Not Reportable Absolute Neutrophils 10.01 Not Reportable Lymphocytes 8.0 L 5.0 L Monocytes 2.0 6.0 Toxic Granulation 1+ Platelet Estimate Normal RBC Morphology Normal Eosinophil Count 1.0 Sodium Potassium Chloride Carbon Dioxide Anion Gap BUN Creatinine Estimated GFR Random Glucose Calcium Urine Color Yellow Urine Appearance Clear Urine pH 5.5 Ur Specific [place] 1.020 Urine Protein Negative Urine Glucose (UA) 250 mg/dl H Urine Ketones Negative Urine Blood Negative Urine Nitrite Negative Urine Bilirubin Negative Urine Urobilinogen 0.2 Ur Leukocyte Esterase Negative 09/14/19 09:42 WBC RBC Hgb Hct MCV MCH MCHC RDW Plt Count MPV Neutrophils % Band Neutrophils % Lymphocytes % Monocytes % Eosinophils % Basophils % Absolute Neutrophils Lymphocytes Monocytes Toxic Granulation Platelet Estimate RBC Morphology Eosinophil Count Sodium 140 Potassium 4.1 Chloride 104 Carbon Dioxide 25.0 Anion Gap 11.0 BUN 13 Creatinine 0.8 Estimated GFR > 60 Random Glucose 206 H Calcium 8.6 L Urine Color Urine Appearance Urine pH Ur Specific [place] Urine Protein Urine Glucose (UA) Urine Ketones Urine Blood Urine Nitrite Urine Bilirubin Urine Urobilinogen Ur Leukocyte Esterase - Imaging and Cardiology CT scan - head Status: Report reviewed VTE H&P Assessment - Risk for VTE Risk for VTE: Yes Risk Level: Moderate Risk Assessment Date: 09/14/19 Risk Assessment Time: 11:22 VTE Orders Placed or Will Be Placed: Yes Plan - Detailed Diagnosis and Plan (1) Cellulitis of oral soft tissues Current Visit: Yes Status: Acute Base Code: K12.2 - CELLULITIS AND ABSCESS OF MOUTH Comment: 09/14/19: -Erythematous and swelling noted above right upper 5, 6, 7 -Chills, temp high of 99.8F -Unasyn 1.5gm q6h -IV fluids 0.9% NS @100ml/hr -Blood cultures drawn in ED -WBC 11, with neutrophils 81 and bands 9 -Afebrile (2) Dizziness Current Visit: No Status: Acute Base Code: R42 - DIZZINESS AND GIDDINESS Comment: 09/14/19: -Dizziness resolved at this time -Head CT: no acute intracranial mass, midline shift, extraaxial fluid collection, or hemorrhage -EKG: rate 75, no acute ST changes -youth nutritional monitor -UA negative (3) DVT prophylaxis Current Visit: Yes Status: Acute Base Code: Z29.9 - ENCOUNTER FOR PROPHYLACTIC MEASURES, UNSPECIFIED Comment: 09/14/19: -Moderate risk due to age and hospitalization -Continue lovenox 40mg SQ daily (4) Full code status Current Visit: Yes Status: Acute Base Code: Z78.9 - OTHER SPECIFIED HEALTH STATUS Comment: 09/14/19: -Full code this admission
[2019-09-14] MEDS: NATEGLINIDE 60 MG PO SCH ×3 (12:00→17:51)
[2019-09-14] MEDS: 0.9 % SODIUM CHLORIDE 1000ML 1,000 ML IV SCH ×2 (12:04→21:40)
[2019-09-14] MEDS ORDERED: MECLIZINE 25 MG TABLET PO PRN (16:12)
[2019-09-14] MEDS: IBUPROFEN 400 MG TABLET PO PRN (17:28)
[2019-09-14 18:47] LABS: INFLUENZA A NEGATIVE (NEGATIVE); INFLUENZA B NEGATIVE (NEGATIVE)
[2019-09-14] MEDS: BUPROPION HCL 150 MG TAB.SR.12H PO SCH (21:35)
[2019-09-14] MEDS ORDERED: SIMVASTATIN 20 MG TABLET PO SCH (22:00)
[2019-09-15] MEDS: AMPICILLIN SODIUM/SULBACTAM NA 1.5 G in 0.9 % SODIUM CHLORIDE 100ML 100 ML IVPB SCH ×4 (01:58→14:43)
[2019-09-15] MEDS: IBUPROFEN 400 MG TABLET PO PRN (06:44)
[2019-09-15 06:50] LABS: ABSOLUTE NEUTROPHIL COUNT 3.42; BASO % 0.2 % (0-6); EOS % 1.5 % (0-6); HEMATOCRIT 41.8 % (42.0-52.0); LYMPH % 15.4 % (16-45); MEAN CELL VOLUME 92.9 fl (81-97); MEAN CORPUSCULAR HEMOGLOBIN 31.1 pg (27-33); MEAN CORPUSCULAR HGB CONC 33.5 g/dl (32-36); MEAN PLATELET VOLUME 9.2 fl (7.4-10.4); MONO % 11.9 % (0-9); PLATELET COUNT 131 K/uL (130-400); RED CELL DISTRIBUTION WIDTH 12.8 % (11.5-14.5); WHITE BLOOD COUNT W/O DIFF 4.8 K/uL (4.2-12.2)
[2019-09-15 07:03] LABS: BLOOD UREA NITROGEN 12 mg/dL (8-23); CREATININE 0.8 mg/dL (0.7-1.2); EST GLOMERULAR FILTRATION RATE > 60 mL/min; GLUCOSE,RANDOM 161 mg/dL (74-109)
[2019-09-15] MEDS: NATEGLINIDE 60 MG PO SCH (08:04)
[2019-09-15] MEDS: 0.9 % SODIUM CHLORIDE 1000ML 1,000 ML IV SCH (09:02)
[2019-09-15] MEDS: LISINOPRIL 5 MG TABLET PO SCH (09:10)
[2019-09-15] MEDS: BUPROPION HCL 150 MG TAB.SR.12H PO SCH (09:11)
[2019-09-15] MEDS ORDERED: ENOXAPARIN 40 MG/0.4 ML SYR SQ SCH (10:00)
--- NOTE | 2019-09-15 12:50 | Discharge Summary ---
Providers Discharge Summary Date: 09/15/19 Date of admission: 09/14/19 02:42 Expected Date of Discharge: 09/15/19 Attending physician: KYARA LOFTON Primary care physician: SHAKA JOEL D.O. Physical Exam - Vital Signs Vital Signs: Vital Signs - Last 24 Hrs Temp Pulse Pulse Resp BP Pulse Ox 09/15/19 09:00 71 16 09/15/19 08:00 98.5 F 69 16 105/64 97 09/15/19 06:40 98.8 F 70 16 104/62 96 09/15/19 01:18 98.6 F 09/15/19 00:10 98.6 F 69 16 94/49 97 09/14/19 21:05 99.2 F 09/14/19 21:00 16 09/14/19 20:00 99.7 F H 94 H 16 94/50 93 L 09/14/19 18:24 100.5 F H 09/14/19 16:28 101.7 F H 09/14/19 15:51 101.6 F H 108 H 20 102/52 95 - General General Appearance: Alert, Oriented x3, Cooperative, No acute distress Limitations: No limitations - Head Head exam: Atraumatic, Normocephalic, Normal inspection - Eye Eye exam: Normal appearance, PERRL. negative: Conjunctival injection, Scleral icterus - ENT ENT exam: Mucous membranes moist. negative: Normal exam, Mucous membranes dry, Normal orophraynx Ear exam: Normal external inspection Nasal Exam: Normal inspection Mouth exam: Tongue normal. negative: Drooling, Laceration, Muffled voice, Tongue elevation Teeth exam: Dental tenderness #, Gingival enlargement (tenderness and swelling right upper in the area of teeth 5, 6 and 7 consistent with infection). negative: Normal inspection Throat exam: negative: Tonsillar erythema, Tonsillomegaly, Tonsillar exudate, L peritonsillar mass - Neck Neck exam: negative: Lymphadenopathy, Meningismus, Tenderness - Respiratory Respiratory exam: Normal lung sounds bilaterally. negative: Respiratory distress, Rhonchi, Stridor, Wheezes - Cardiovascular Cardiovascular Exam: Regular rate, Normal rhythm, Normal heart sounds Peripheral Pulses: 2+: Radial (R), Radial (L), Dorsalis Pedis (R), Dorsalis Pedis (L) - GI/Abdominal GI/Abdominal exam: Soft, Normal bowel sounds. negative: Tenderness - Rectal Rectal exam: Deferred - exam: Deferred - Extremities Extremities exam: Normal inspection - Back Back exam: Denies: CVA tenderness (R), CVA tenderness (L), Tenderness - Neurological Neurological exam: Alert, Normal gait, Oriented X3. negative: Abnormal gait, Altered, Motor sensory deficit - Psychiatric Psychiatric exam: Normal affect, Normal mood - Skin Skin exam: Dry, Intact, Normal color, Warm Hospitalization - Hospitalization Admission Diagnosis: oral cellulitis, dental infection - Problem List/Discharge Diagnosis (1) Cellulitis of oral soft tissues Status: Acute Base Code: K12.2 - CELLULITIS AND ABSCESS OF MOUTH Comment: 09/15/19: -Erythematous and swelling noted above right upper 5, 6, 7; improved since admission -Chills, temp high of 102F, afebrile past 24 hours -Unasyn 1.5gm q6h -IV fluids 0.9% NS @100ml/hr -Blood cultures drawn in ED -WBC 4.8, with no bands today -DC home on Augmentin 875 BID x 10 days and follow-up with dentistry (2) Dizziness Status: Acute Base Code: R42 - DIZZINESS AND GIDDINESS Comment: 09/15/19: -Dizziness resolved at this time -Head CT: no acute intracranial mass, midline shift, extraaxial fluid collection, or hemorrhage -EKG: rate 75, no acute ST changes -panel monitor -UA negative -Continue Meclizine 25mg TID prn (3) DVT prophylaxis Status: Acute Base Code: Z29.9 - ENCOUNTER FOR PROPHYLACTIC MEASURES, UNSPECIFIED Comment: 09/15/19: -Moderate risk due to age and hospitalization -Continue lovenox 40mg SQ daily while hospitalized, resume normal activity at discharge (4) Full code status Status: Acute Base Code: Z78.9 - OTHER SPECIFIED HEALTH STATUS Comment: 09/15/19: -Full code this admission - Hospitalization Course Disposition: Home, Self-Care Hospital Course: 69 year old male patient presented to ED twice yesterday for differing complaints. Initial evaluation was for sudden onset dizziness. Patient reporte d dizziness upon standing that began around 1pm. Patient denied any chest pain, shortness of breath, syncope, or nausea with the dizziness. Reported symptoms to improve upon sitting. Workup at that time included an unremarkable CBC and CMP. Head CT indicated no intracranial mass, midline shift, extraaxial fluid collection or hemorrhage. EKG: rate 75, no acute ST changes. Patient was discharged home with Meclizine due to negative workup. Patient then returned later that night due to onset of chills. Patient noted to be shaking uncontrollably at home by , which started around midnight. Patient did not check his temperature at that time. Patient noted that the dizziness previously evaluated for had resolved. Patient did recall right upper gum tenderness for the past 3 days that he was treating with peroxide rinses at home. Patient denied noting any drainage from the affected area or previous abscess. Patient denied cough, vomiting, diarrhea, or urinary symptoms. Paticharis avalos's past medical history is significant for diabetes, high cholesterol, and multiple orthopedic surgeries. PCP: Dr. Joel ED Course: CBC: WBC 11 with neutrophils 81, bands 9 UA: negative Temp 99.8F Blood cultures drawn Started Unasyn 3gm in ED, 1.5gm q6h 09/14/19: Patient A&O x 4, resting comfortably in bed. Patient reports resolution of shaking and dizziness at this time. Has noted some improvement in gum swelling and pain since starting the antibiotics. Tolerating PO diet. 09/15/19: Patient A&O x 4, sitting comfortably in chair. Has remained afebrile the past 24 hours, notes improvement in dizziness and generalized malaise. Will dc home with Augmentin, follow-up with dentistry. 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 .Continuous Abnormal Labs: Abnormal Lab Results 09/14/19 09/14/19 09/14/19 Range/Units 01:00 02:05 09:42 Hct 40.9 L (42.0-52.0) % Neutrophils % 81.0 H 88.0 H (47-80) % Band Neutrophils % 9.0 H (0-5) % Lymphocytes % 5.3 L (16-45) % Monocytes % (0-9) % Lymphocytes 8.0 L 5.0 L (16-45) % POC Glucose (70-110) mg/dL Random Glucose (74-109) mg/dL Calcium (8.8-10.2) mg/dL Urine Glucose (UA) 250 mg/dl H (NEGATIVE) 09/14/19 09/14/1909/14/19 Range/Units 09:42 17:03 21:05 Hct (42.0-52.0) % Neutrophils % (47-80) % Band Neutrophils % (0-5) % Lymphocytes % (16-45) % Monocytes % (0-9) % Lymphocytes (16-45) % POC Glucose 153 H 178 H (70-110) mg/dL Random Glucose 206 H (74-109) mg/dL Calcium 8.6 L (8.8-10.2) mg/dL Urine Glucose (UA) (NEGATIVE) 09/15/19 09/15/19 09/15/19 Range/Units 06:22 06:22 11:36 Hct 41.8 L (42.0-52.0) % Neutrophils % (47-80) % Band Neutrophils % (0-5) % Lymphocytes % 15.4 L (16-45) % Monocytes % 11.9 H (0-9) % Lymphocytes (16-45) % POC Glucose 180 H (70-110) mg/dL Random Glucose 161 H (74-109) mg/dL Calcium 8.2 L (8.8-10.2) mg/dL Urine Glucose (UA) (NEGATIVE) Condition at Discharge: (2) Stable Discharge Medications - Discharge Medications Prescriptions: Amoxicillin/Potassium Clav [Augmentin 875-125 Tablet] 1 tab PO BID #20 tab Home Medications: Ambulatory Orders Bupropion HCl [Wellbutrin Xl] 300 mg PO QHS 12/10/17 [Last Taken 09/13/19] Cetirizine HCl [Zyrtec] 10 mg PO DAILY 12/10/17 [Last Taken 09/13/19] Cholecalciferol (Vitamin D3) [Vitamin D3] 2,000 unit PO DAILY 12/10/17 [Last Taken 09/13/19] Cyclobenzaprine HCl 10 mg PO ASDIR 12/10/17 [Last Taken 09/13/19] Glipizide 10 mg PO DAILY 12/10/17 [Last Taken 09/13/19] Lisinopril 2.5 mg PO DAILY 12/10/17 [Last Taken 09/13/19] Simvastatin [Zocor] 40 mg PO QHS 12/10/17 [Last Taken 09/13/19] Meclizine HCl [Antivert] 25 mg PO Q8H #15 tablet 09/13/19 [Last Taken 09/13/19] Nateglinide [Starlix] 60 mg PO TID 09/13/19 [Last Taken 09/13/19] Amoxicillin/Potassium Clav [Augmentin 875-125 Tablet] 1 tab PO BID #20 tab 09/15/19 [Last Taken Unknown] Discharge Plan - Discharge Instructions Activity at Discharge: Increase Activity as Tolerated Diet at Discharge: Advance to Usual Diet Instructions: Gingivostomatitis (GEN) Additional Instructions: -You will need to take Augmentin twice a day. Your next dose is due tonight. -Follow-up with your dentist -Appointment with Dr. Joel on Saturday 09/22 at 1:30 Quality Measures - Quality Measures Quality Measures: Advance Directives, Documentation of Current Medications in Medical Record, Elder Maltreatment Screen and Follow-Up Plan, Screening for High Blood Pressure and F/U Documented - Current Medications Quality Measure: Measure #130: Documentation of Current Medications Documentation of Current Medications: <Current Medications Documented/Reviewed> [X9232] - Blood Pressure Screening Quality Measure: Screening for High Blood Pressure and Follow-Up Documented Does Patient Have Any of the Following: No Blood Pressure Classification: Hypertensive Reading Systolic Measurement: 135 Diastolic Measurement: 99 Screening for High Blood Pressure: < First Hypertensive BP, F/U Documented > [Z4875] First Hypertensive Follow-up Interventions: Referral to alternative/primary care provider. - Advance Directives Quality Measure: Measure #47: Care Plan Advance Directives Established: No Advance Directives Information Provided To Patient: No Advance Directives on File: No Living Will: Yes (PT IS SORORITY MOTHER) Power of Cable Strander: No Advance Care Planning: <Care Plan/Decision Maker Not Decided; Discussed & Documented> [4110G] - Elder Abuse Suspicion Index Screening: Elder Abuse Suspicion Index Screening Rely on people for bathing, dressing, shopping, banking, etc: No Made to feel shamed or threatened by someone: No Forced to sign papers or use money against will: No Feel afraid, touched in ways not wanted or hurt physically: No Poor eye contact, withdrawn, malnourished, cuts or bruises: No Screening Result: Negative result EASI Reference Information: Yue CYR, Alanna C, Karen D, [place] Santiago.Development and validation of a tool to assist physicians identification of elder abuse: The Elder Abuse Suspicion Index (EASI ). Journal of Elder Abuse and Neglect, 2008; 20 (3): 276-300. - Elder Maltreatment Screen Quality Measures: Elder Maltreatment Screen and Follow-Up Plan Elder Maltreatment Screen: <Negative, No Follow-Up Plan Required> [G8734]
== END 2019-09-15 15:57 | disposition home or self-care (01) ==
LOC: ER 00:21 → MEDSURG 02:42
PROVIDERS: ADMIT Internal Medicine; ATTEND Internal Medicine
DX: K12.2 Cellulitis and abscess of mouth (principal); K04.7 Periapical abscess without sinus; E11.9 Type 2 diabetes mellitus without complications; E78.00 Pure hypercholesterolemia, unspecified; M19.90 Unspecified osteoarthritis, unspecified site; Z87.891 Personal history of nicotine dependence; Z85.828 Personal history of other malignant neoplasm of skin; Z23 Encounter for immunization
CPT/HCPCS: 36416; 80048; 81003; 82948; 83605; 85025; 85027; 87400; 90686; 99217; 99220; 99285; J0295; J3490; J7030

== ENCOUNTER 2019-10-05 07:59 | Emergency (ER) | payer MEDICARE, OTHER ==
[2019-10-05] MEDS ORDERED: PANTOPRAZOLE SODIUM IV 40 MG VIAL IVP ONE (08:21)
[2019-10-05] MEDS ORDERED: MAGNESIUM HYDROXIDE/AL HYDROX 30 ML, LIDOCAINE VISC 2% 15ML 15 ML PO ONE ×2 (08:21)
[2019-10-05] MEDS ORDERED: 0.9 % SODIUM CHLORIDE 1,000 ML BAG IV ONE (08:21)
[2019-10-05] MEDS ORDERED: ONDANSETRON HCL IV 4 MG/2 ML VIAL IV ONE (08:21)
[2019-10-05 08:31] LABS: ABSOLUTE NEUTROPHIL COUNT 5.65; BASO % 0.4 % (0-6); EOS % 1.9 % (0-6); GRAN % 67.3 % (47-80); HEMATOCRIT 46.7 % (42.0-52.0); HEMOGLOBIN 15.9 gm/dl (14.0-18.0); LYMPH % 21.6 % (16-45); MEAN CELL VOLUME 91.7 fl (81-97); MEAN CORPUSCULAR HEMOGLOBIN 31.2 pg (27-33); MEAN PLATELET VOLUME 9.6 fl (7.4-10.4); MONO % 8.8 % (0-9); PLATELET COUNT 250 K/uL (130-400); RED BLOOD COUNT 5.09 M/uL (4.40-5.70); RED CELL DISTRIBUTION WIDTH 12.6 % (11.5-14.5); WHITE BLOOD COUNT W/O DIFF 8.4 K/uL (4.2-12.2)
--- NOTE | 2019-10-05 08:31 | Emergency Department Record ---
History of Present Illness - General Chief Complaint: Abdominal Pain Stated Complaint: STOMACH PAIN/LOSING WEIGHT Time Seen by Provider: 10/05/19 08:14 Source: Patient Mode of Arrival: Ambulatory Limitations: No limitations - History of Present Illness Initial Comments: The patient is here due to a one week hx of upper AP. The pain is sharp and stabbing and intermittent and nonradiating. The pain does improve with eating and taking Tums. The patient denies any hx of fever, back pain, CP, SOB, nausea, vomiting, or black or bloody stools. The patient did have an ulcer many years ago and this pain feels the same. The patient also has been taking Ibuprofen daily for about a year due to R knee pain. He did have an EGD performed a year ago that was neg for any ulcers. MD Complaint: Abdominal pain Onset/Timin -: Week(s) Location: Epigastric Radiation: None Migration to: No migration Severity: Moderate Severity scale (1-10): 3 Quality: Aching Consistency: Constant, Intermittent Worsens With: Eating - Related Data Previous Rx's Medication Instructions Recorded Meclizine HCl [Antivert] 25 mg PO Q8H #15 tablet 09/13/19 Amoxicillin/Potassium Clav 1 tab PO BID #20 tab 09/15/19 [Augmentin 875-125 Tablet] Omeprazole [Prilosec] 40 mg PO DAILY #56 10/05/19 Allergies Allergy/AdvReac Type Severity Reaction Status Date / Time No Known Drug Allergies Allergy Verified 10/05/19 08:13 Travel Screening - Travel/Exposure Within Last 30 Days Have you traveled within the last 30 days?: No - Travel/Exposure Within Last Year Have you traveled outside the [place] in the last year?: No - Additonal Travel Details Have you been exposed to anyone with a communicable illness?: No - Travel Symptoms Symptom Screening: None Review of Systems Constitutional: Denies: Chills, Fever Eyes: Denies: Eye discharge ENT: Denies: Congestion Respiratory: Denies: Cough Cardiovascular: Denies: Arrhythmia, Chest pain Endocrine: Denies: Fatigue Gastrointestinal: Reports: Abdominal pain. Denies: Nausea Genitourinary: Denies: Dysuria Musculoskeletal: Denies: Arthralgia Skin: Denies: Bruising Past Medical History - SOCIAL HISTORY Smoking Status: Former smoker Alcohol Use: None Drug Use: None - RESPIRATORY Hx Respiratory Disorders: Yes Hx Asthma: No Hx Bronchitis: Yes (hx of 20 yrs ago) Hx COPD: No Hx Pneumonia: No Hx Pulmonary Embolism: Yes (hx of 20 yrs ago) Hx Tuberculosis: No - CARDIOVASCULAR Hx Cardio Disorders: Yes Hx Hypertension: No Comment:: high cholesterol - NEURO Hx Neuro Disorders: No Hx CVA: No Hx Dizziness: No Hx Headaches: No Hx of Migraines: No Hx Parkinson's Disease: No Hx Seizures: No Hx Speech Problem: No Hx TIA: No Hx Weakness: No - GI Hx GI Disorders: Yes Hx Abdominal Pain: No Hx Diverticulitis: No Hx Reflux: Yes Hx Hepatitis/Jaundice: No Hx Irritable Bowel: No Hx Liver Disease: No Hx Nausea/Vomiting: No Hx Pancreatitis: No Hx Ulcer: Yes Hx Cirrhosis: No Hx of Polyps: Yes (possibly) - Hx Genitourinary Disorders: No Hx Bladder Problem: No Hx Dialysis: No Hx Kidney Stones: No Hx Prostate Problems: No Hx Renal Disease: No Hx UTI: No - ENDOCRINE Hx Endocrine Disorders: Yes Hx Diabetes: Yes (NIDDM) Hx Thyroid Disease: No - MUSCULOSKELETAL Hx Musculoskeletal Disorders: Yes Hx Arthritis: Yes Comment:: tendon surgery - PSYCH Hx Psych Problems: Yes Hx Depression: Yes (hx of when divorce) - HEMATOLOGY/ONCOLOGY Hx Hematology/Oncology Disorders: Yes Hx Cancer: Yes (basal cell ca) Family Medical History Any Significant Family History?: Yes Family Hx Comment (NOT TO BE USED IN PLACE OF ITEMS BELOW): Father - cancer Hx Cancer: Father Physical Exam - General General Appearance: Alert, Oriented x3, Cooperative, No acute distress - Head Head exam: Atraumatic, Normocephalic - Eye Eye exam: Normal appearance, PERRL, EOMI - ENT Throat exam: Normal inspection. negative: Tonsillar erythema, Tonsillar exudate - Neck Neck exam: Normal inspection, Full ROM. negative: Tenderness - Respiratory Respiratory exam: Normal lung sounds bilaterally. negative: Respiratory distress - Cardiovascular Cardiovascular Exam: Regular rate, Normal rhythm, Normal heart sounds - GI/Abdominal GI/Abdominal exam: Soft, Tenderness (There is reproducible epigastric tenderness.). negative: Normal bowel sounds, Distended, Guarding, Rebound, Rigid - Extremities Extremities exam: Normal inspection, Full ROM, Normal capillary refill. negative: Tenderness - Back Back exam: Reports: Normal inspection - Neurological Neurological exam: Alert, Normal gait. negative: Abnormal gait, Motor sensory deficit - Psychiatric Psychiatric exam: negative: Anxious Course Vital Signs 10/05/19 08:02 Temperature 98.3 F Pulse Rate 95 H Respiratory 20 Rate Blood Pressure 140/91 Pulse Ox 96 - Reevaluation(s) Reevaluation #1: The patient is doing very well at this time. His pain did resolve with the IV H2 mira and Zofran. I did discuss the issues with the patient and do feel that he most likely has an early duodenal or gastric ulcer due to the NSAID usage. We will place a consultation to Dr. Metz and will start the patient on an H2 mira at home. 10/05/19 10:44 Medical Decision Making - Data Complexity MDM Data: Labs Ordered and/or Reviewed, X-Ray Ordered and/or Reviewed - Lab Data Result diagrams: 10/05/19 08:20 10/05/19 08:20 - Radiology Data Radiology results: Report reviewed (CT: Neg for any acute abnormality.) Disposition Disposition: Discharge Clinical Impression: Gastritis and duodenitis Disposition: Home, Self-Care Condition: (2) Stable Instructions: Abdominal Pain (ED) Additional Instructions: Please stop using any Ibuprofen and take Tylenol for pain. Please take the Prilosec as directed and please see Dr. Metz in the [facility] as directed. Please return to the ER for any worsening pain, any fever or vomiting. Prescriptions: Omeprazole [Prilosec] 40 mg PO DAILY #56 cap. Referrals: [facility] [Provider Group] Forms: Patient Portal Access Time of Disposition: 10:51 Quality - Quality Measures Quality Measures: N/A - Blood Pressure Screening View Details: Yes Does Patient Have Any of the Following: Active Dx of HTN Blood Pressure Classification: Hypertensive Reading Systolic Measurement: 140 Diastolic Measurement: 91 Screening for High Blood Pressure: Patient Exclusion, Hx of HTN [[id number]]
[2019-10-05 09:10] LABS: URINE APPEARANCE CLEAR; URINE BILIRUBIN NEGATIVE (NEGATIVE); URINE BLOOD NEGATIVE (NEGATIVE); URINE COLOR YELLOW; URINE KETONE NEGATIVE (NEGATIVE); URINE LEUKOCYTE ESTERASE NEGATIVE (NEGATIVE); URINE NITRITE NEGATIVE (NEGATIVE); URINE PROTEIN NEGATIVE (NEGATIVE); URINE UROBILINOGEN 0.2 E.U./dL (0.20 - 1.00)
[2019-10-05 09:26] LABS: BLOOD UREA NITROGEN 16 mg/dL (8-23); CREATININE 0.8 mg/dL (0.7-1.2); EST GLOMERULAR FILTRATION RATE > 60 mL/min; LIPASE 16 U/L (13-60)
[2019-10-05 09:28] LABS: GLUCOSE,RANDOM 187 mg/dL (74-109)
[2019-10-05 09:31] LABS: ALBUMIN 4.8 g/dL (4.0-5.0); ALKALINE PHOSPHATASE 91 U/L (40-129); ALT/SGPT 19 U/L (<41); AST/SGOT 22 U/L (10.0-50.0)
[2019-10-05 09:32] LABS: BILIRUBIN,DIRECT < 0.2 mg/dL (0-0.3)
--- NOTE | 2019-10-05 10:34 | CT SCAN REPORT ---
EXAMINATION: CT Abdomen and Pelvis with IV Contrast EXAM DATE: 10/05/2019 10:16 AM TECHNIQUE: CT imaging of the abdomen and pelvis was performed with intravenous contrast. Coronal and sagittal images were reconstructed. IV Contrast: The amount and type of contrast are recorded in the medical record. INDICATION: upper AP COMPARISON: None ENCOUNTER: Not applicable CT ABDOMEN AND PELVIS FINDINGS: Lung Bases: A calcified granuloma is seen in the posterior medial left lung base with adjacent pleura l thickening. Mild dependent atelectasis. Hepatobiliary: The liver has a normal size with a smooth surface. The hepatic and portal veins appear patent. The gallbladder appears normal without evidence of gallstones or gallbladder wall thickenin g Pancreas: The pancreas is normal. Spleen: Numerous calcified granulomas. No suspicious splenic lesion. Adrenals: The adrenal glands are normal. Kidneys, Ureters, & Bladder: Both kidneys have a normal size and there is no hydronephrosis. Both ur eters have a normal caliber and the urinary bladder is unremarkable. Gastrointestinal: The stomach and small bowel are normal with no obstruction or inflammation. The shoshana endix is normal in caliber and air-filled. A large amount of stool is seen throughout the colon. No dilated bowel. Reproductive Organs: Unremarkable Lymphatic System: There is no adenopathy within the abdomen or pelvis. Vasculature: Normal caliber abdominal aorta. The mesenteric vessels appear grossly unremarkable. Peritoneum: No free fluid, free air, or inflammation Abdominal Wall & Musculoskeletal: Multilevel degenerative changes are seen in the lower thoracic and lumbar spine including severe disc height narrowing, sclerosis and spurring at L5-S1 right IMPRESSION: 1. No free air, free fluid or significant inflammation. 2. Large amount of stool throughout the colon. 3. Normal caliber appendix. Dictated by: Jack Elizabeth MD on 10/05/2019 10:24 AM. .
== END 2019-10-05 10:53 | disposition home or self-care (01) ==
LOC: ER 07:59
DX: K29.70 Gastritis, unspecified, without bleeding (principal); K29.80 Duodenitis without bleeding; I10 Essential (primary) hypertension; Z87.891 Personal history of nicotine dependence
CPT/HCPCS: 74177; 80048; 80076; 81003; 83690; 85025; 96374; 96375; 99284; C9113; J2405; J7030

== ENCOUNTER 2019-11-20 07:06 | Day surgery (SDC) | payer MEDICARE, OTHER ==
[~2019-11-20 07:06] MED LIST: ACETAMINOPHEN 1,000 MG/100 ML BTL IVPB ONE; CEFAZOLIN 2 Gram 2 GM/50 ML BAG IVPB ONE; FAMOTIDINE 20MG TABLET PO ONE; MECLIZINE 25 MG TABLET PO ONE; METOCLOPRAMIDE 10 MG TABLET PO ONE
[2019-11-20] MEDS ORDERED: ONDANSETRON HCL IV 4 MG/2 ML VIAL IVP ONE (07:07)
[2019-11-20] MEDS ORDERED: ROPIVACAINE HCL (NAROPIN) /PF 5MG/ML 20ML VIAL IV ONE (07:07)
[2019-11-20] MEDS ORDERED: LIDOCAINE 2% MDV (20MG/ML) 20ML VIAL IV ONE (07:07)
[2019-11-20] MEDS ORDERED: FENTANYL PF 100MCG/2ML VIAL IV ONE (07:07)
[2019-11-20] MEDS ORDERED: 0.9 % SODIUM CHLORIDE 100ML 100 ML IV ONE (07:07)
[2019-11-20] MEDS ORDERED: PROPOFOL 10 MG/ML VIAL IV ONE (07:07)
[2019-11-20] MEDS ORDERED: DEXAMETHASONE 4 MG/ML 1ML VIAL IVP ONE (07:07)
[2019-11-20] MEDS ORDERED: MIDAZOLAM HCL 2MG/2ML VIAL IV ONE (07:07)
[2019-11-20] MEDS ORDERED: SEVOFLURANE 250 ML INH ONE (07:07)
[2019-11-20] MEDS ORDERED: HYDROMORPHONE HCL 2 MG/ML VIAL IV ONE (07:07)
[2019-11-20] MEDS ORDERED: RINGERS SOLUTION,LACTATED 1,000 ML IV ONE ×2 (07:45→09:15)
[2019-11-20] MEDS ORDERED: TRANEXAMIC ACID 1,000 MG/10 ML ML IVPB ONE (10:10)
[2019-11-20] MEDS ORDERED: MAGNESIUM HYDROXIDE 30 ML UDC PO PRN (12:15)
[2019-11-20] MEDS ORDERED: TRAMADOL HCL 50 MG TABLET PO PRN (12:15)
[2019-11-20] MEDS ORDERED: AL HYDROX/MAG HYDROX 30ML UD PO PRN (12:15)
[2019-11-20] MEDS ORDERED: ONDANSETRON HCL IV 4 MG/2 ML VIAL IVP PRN (12:15)
[2019-11-20] MEDS ORDERED: SENNOSIDES/DOCUSATE SODIUM UD CAPSULE PO PRN (12:15)
[2019-11-20] MEDS ORDERED: NALOXONE 0.4 MG/1 ML VIAL IVP PRN (12:15)
[2019-11-20] MEDS ORDERED: ACETAMINOPHEN 325 MG TAB PO PRN (12:15)
[2019-11-20] MEDS ORDERED: METOCLOPRAMIDE HCL 10 MG/2 ML VIAL IVP PRN (12:15)
[2019-11-20] MEDS ORDERED: DIPHENHYDRAMINE HCL 25 MG CAPSULE PO PRN (12:15)
[2019-11-20] MEDS ORDERED: ZOLPIDEM TARTRATE 5 MG TABLET PO PRN (12:15)
[2019-11-20] MEDS ORDERED: PANTOPRAZOLE SODIUM 40 MG TABLET PO PRN (12:20)
--- NOTE | 2019-11-20 12:32 | Operative Note ---
DATE OF SURGERY: 11/20/2019 SURGEON: Harish Warren D.O. REFERRING PHYSICIAN: Chalino Joel D.O. PREOPERATIVE DIAGNOSIS: OSTEOARTHRITIS OF THE RIGHT KNEE. POSTOPERATIVE DIAGNOSIS: OSTEOARTHRITIS OF THE RIGHT KNEE. OPERATION: RIGHT TOTAL KNEE ARTHROPLASTY. DESCRIPTION: This 69-year-old male was taken to the Operating Room and placed in the supine position on the operating room table. The patient had been given a spinal anesthetic, but because of inadequate uptake of the block a general anesthetic was administered. The right lower extremity was elevated, it was prepped with Hibiclens and draped in the usual sterile fashion. It was exsanguinated and the tourniquet was inflated to 300 mmHg. An anterior longitudinal midline incision was made followed by a medial parapatellar arthrotomy incision. An intercondylar drill hole was made for the intramedullary alignment lori and a 10 mm cut was made on the distal femur at 6 degrees valgus and the sizing jig was affixed and a size 72.5 was seen to be the appropriate size in the mediolateral direction, but 75 in the anterior posterior direction, therefore, the pin holes and the guide were placed 2 mm anteriorly and subsequently the 4-in-1 cutting block was affixed and 3 degrees of external rotation and the appropriate cuts were made. We then directed our attention to the proximal tibia and an extramedullary alignment guide was used to cut the proximal tibia. We referenced initially a 2 mm cut off the lateral tibial plateau and after the appropriate positioning of the block a 3 degree posterior slope cut was made, however, this was found to be insufficient bone removal and therefore an additional 2 mm of bone was resected off the proximal tibia. This gave us a much better fit with the ability to fully extend the knee. We did size the tibia to a size 79, remnant of the menisci and osteophytes were removed from the posterior aspect of the joint, the patella was cut and restored to anatomic heights with a 37 x 8.6 mm patella trial. With the trial components in place a 10 mm bearing was seen to be the appropriate size given its full extension and full flexion with good stability. The wound was copiously irrigated with lactated Ringer's solution after all trial components had been removed. Because of the sclerosis on the lateral tibial plateau we did drill holes in this sclerotic bone to allow for penetration of the cement into the proximal tibia. After copious irrigation we dried all of the bony surfaces and all components were cemented into place and excess cement removed after the insertion of each component. The initial component placed was the size 79 tibial baseplate, the 10 mm bearing, 72.5 cruciate retaining femur and the 37 x 8.6 mm patella. Once the cement had hardened the knee was again take through range of motion and we were able to fully extend the knee on the operating room table and it flexes really without any instability. The wound was then irrigated, a drain was placed through a separate stab incision, the arthrotomy incision was then closed with #2 Vicryl, the subcutaneous tissue was closed with 0 Vicryl and the skin was stapled. Sterile dressings were applied. The patient was taken to the Recovery Room in satisfactory condition. GROSS PATHOLOGY: The patient demonstrated advanced osteoarthritis of the right knee especially the lateral compartment and flexion contracture was also noted at about 5-7 degrees which was corrected at the time of the operation. FINAL COMPONENTS INSERTED: [employer] size 72.5 cruciate retaining femur, a 79 tibia, a 10 mm anterior stabilized E1 bearing and a 37 x 8.6 mm patella was used. JOB NUMBER: [id number] MTDD
[2019-11-20] MEDS: RINGERS SOLUTION,LACTATED 1,000 ML IV SCH ×2 (13:02→14:54)
[2019-11-20] MEDS: HYDROCODONE/APAP 5/325MG TABLET PO PRN ×2 (14:40→20:39)
[2019-11-20] MEDS: TRAMADOL HCL 50 MG TABLET PO PRN (16:13)
[2019-11-20] MEDS: CEFAZOLIN 2 Gram 2 GM/50 ML BAG IVPB SCH (16:14)
[2019-11-20] MEDS ORDERED: NATEGLINIDE 60 MG PO SCH (16:30)
--- NOTE | 2019-11-20 17:54 | Rehab Evaluation ---
Patient Information - Patient Information Diagnosis: OA R knee, s/o TKA Ordered Treatment: PT Evaluate and Treat Status: Initial Evaluation Surgery: Yes (R TKA) Date of Surgery: 11/20/19 History: Detail (Pt describes progressive degeneration of R knee over several years.) Past Medical/Surgical Hx: PAST MEDICAL/SURGICAL HISTORY Past Surgical History right rotator cuff repair left achelies tendon repair tooth extraction 10/01/2019 EGD/colonoscopy [facility] PMH - Respiratory Hx Respiratory Disorders Yes Hx Asthma No Hx Bronchitis Yes: hx of 20 yrs ago Hx Chronic Obstructive No Pulmonary Disease (COPD) Hx Pneumonia No Hx Pulmonary Embolism Yes: hx of 20 yrs ago Hx Tuberculosis No PMH - Cardiovascular Hx Cardiovascular Disorders Yes Hx Abnormal EKG No Hx Cardiac Catheterization Yes: came back normal Hx Chest Pain No Hx Congestive Heart Failure No Hx Deep Vein Thrombosis No Hx Edema No Hx Heart Attack No Hx Hypertension Yes Hx Hypotension Yes Hx Irregular Heartbeat No Hx Palpitations No Hx Pacemaker/Defibrillator No Hx Coronary Artery Disease No Hx Coronary Artery Bypass No Graft Hx Coronary Stent No Hx Rheumatic Fever No Hx Heart Murmur No Exercise Tolerance Good Hx Transient Ischemic Attacks No (TIA) Residual Deficits from CVA No Hx of Migraines No Comment: high cholesterol PMH - Neuro Hx Neurological Disorders No Hx Cerebrovascular Accident No Hx Dizziness No Hx Headaches No Hx Parkinson's Disease No Hx Seizures No Hx Speech Problem No Hx Syncope No Hx Transient Ischemic Attacks No (TIA) Hx Weakness No PMH - GI Hx Gastrointestinal Disorders Yes Hx Abdominal Pain No Hx Diverticulitis No Hx Gastroesophageal Reflux Yes Hx Hepatitis/Jaundice No Hx Irritable Bowel No Hx Liver Disease No Hx Nausea/Vomiting No Hx Pancreatitis No Hx Ulcer Yes Hx Weight Loss/Weight Gain Yes: RECENT 20 LB WT LOSS UNKNOWN ETIOLOGY Hx Cirrhosis No PMH - Hx Genitourinary Disorders No Hx Bladder Problem No Hx Dialysis No Hx Kidney Stones No Hx Prostate Problems No Hx Renal Disease No Hx Urinary Tract Infection No PMH - Endocrine Hx Endocrine Disorders Yes Hx Diabetes Yes: NIDDM Hx Thyroid Disease No Hx of NIDDM Yes Comment: BLOOD SUGARS 150-160 A1C 6.7 - 7.0 PMH - Musculoskeletal Hx Musculoskeletal Disorders Yes Hx Arthritis Yes Comment: tendon surgery PMH - Psych Hx Psychiatric Problems Yes Hx Depression Yes: hx of when divorce PMH - Hematology/Oncology Hx Hematology/Oncology Yes Disorders Hx Cancer Yes: basal cell ca on back Premorbid Status: Detail (Pt was requiring single tip cane for ambulation due to pain and instability in R knee. He reports that he began experiencing L shoulder pain recently as his R knee has gotten worse. 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 There are three steps to enter the home, with a single handrail on the L to enter. He has tub/shower combination and has a tub bench that overlaps edge of tub. He has elevated toilet and no grab bars. He borrowed a 4 wheeled walker to use post-operatively; will bring it in tomorrow to see if it will be practical for patient. 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.) Precautions: [place], Fall - Time With Patient Total Time Spent With Patient (Min): 35 Treatment Procedures: Detail (PT Evaluation) Subjective Information - Subjective Information Per Patient (Pt reported increased pain with walking to bathroom, but was experiencing relief after pain med administered and in recliner.) Objective Data - Pain Pain Present: Yes Pain Intensity: 5 Pain Scale Used: Numeric (1 - 10) - Mental Status Patient Orientation: Oriented x3 - Visual Perception Appears within normal limits for therapeutic activities - ROM Not within normal limits (Limited in R knee due to surgical procedure and bulky bandage. Grossly WNL at R hip and ankle, L LE.) - Strength/Tone Not within normal limits (2/5 R hip flexion, abduction, adduction, extension; 2+/5 R knee flexion, 2/5 R knee extension, 3/5 R ankle dorsiflexion. All motions are grossly 4/5 in L LE.) - Coordination Appears within normal limits for therapeutic activities - Bed Mobility Needs Assist (Required minimal assist to come to sitting at edge of bed, for moving R LE and raising upper body.) - Transfers Needs Assist (CGA for sit/stand transfer from edge of bed to walker and to commode.) - Balance Balance Sitting: Good Balance Standing: Fair - Sensation Intact - Gait Detail (Pt ambulated with nrsg to bathroom, VCs to bear weight as tolerated R LE, w/CGA, and back to recliner.) Therapy Assessment - Therapy Assessment Detail (Pt exhibits mobility, range of motion, strength, and gait impairments consistent with his post-surgical condition. He will benefit from IP physical therapy to facilitate safe return to home environment.) Patient Education - Patient Education Teaching Topic: Equipment Use, Exercise/Activity (Performed 10 reps each of ankle pumps, quadriceps isometrics, hamstring isometrics, gluteal isometrics, assisted SLR, assisted heel slides.) Response: Verbalize Understanding Teaching Method: Discussion Teaching Recipient: Patient, Significant Other Barriers To Learning: None Problem List - Problem List Physical Therapy Problem List: Detail (1. Requires assist for bed mobility and transfers. 2. Difficulty walking. 3. Impaired ROM and strength in R LE.) Goals - Goals Physical Therapy Goals: 1. Pt will safely get in/out of bed w/SBA. 2. Pt will safely perform bed/chair/commod transfers w/SBA. 3. Pt will safely ambulate household distances and ascend/descend three steps w/CGA with front or four wheeled walker. 4. Pt will be independent in TKA exercise program for IP. Prognosis - Prognosis Good Plan - Plan Physical Therapy Plan: Pt will be seen 1-2x tomorrow for mobility and transfer training, gait training, including stair training, and review of HEP.
[2019-11-20] MEDS ORDERED: FONDAPARINUX 2.5 MG/0.5 ML SYR SQ SCH (18:00)
[2019-11-20] MEDS: ASPIRIN 325 MG TAB ENTERIC-COATED PO SCH (21:28)
[2019-11-20] MEDS ORDERED: CYCLOBENZAPRINE 10MG TABLET PO SCH (22:00)
[2019-11-20] MEDS ORDERED: SIMVASTATIN 20 MG TABLET PO SCH (22:00)
[2019-11-20] MEDS: OXYCODONE HCL/APAP 5MG/325MG TABLET PO PRN (23:42)
[2019-11-21] MEDS: CEFAZOLIN 2 Gram 2 GM/50 ML BAG IVPB SCH ×2 (00:09→09:10)
[2019-11-21] MEDS: HYDROCODONE/APAP 5/325MG TABLET PO PRN (04:46)
[2019-11-21 06:55] LABS: HEMATOCRIT 38.8 % (42.0-52.0); HEMOGLOBIN 12.9 gm/dl (14.0-18.0); MEAN CELL VOLUME 93.5 fl (81-97); MEAN CORPUSCULAR HGB CONC 33.2 g/dl (32-36); MEAN PLATELET VOLUME 9.6 fl (7.4-10.4); PLATELET COUNT 215 K/uL (130-400); RED BLOOD COUNT 4.15 M/uL (4.40-5.70)
[2019-11-21] MEDS: OXYCODONE HCL/APAP 5MG/325MG TABLET PO PRN (08:02)
[2019-11-21] MEDS: TRAMADOL HCL 50 MG TABLET PO PRN (09:06)
[2019-11-21] MEDS: ASPIRIN 325 MG TAB ENTERIC-COATED PO SCH (09:10)
[2019-11-21] MEDS ORDERED: LISINOPRIL 5 MG TABLET PO SCH (10:00)
[2019-11-21] MEDS ORDERED: LORATADINE 10 MG TABLET PO SCH (10:00)
[2019-11-21] MEDS ORDERED: BUPROPION XL 300MG PO SCH (10:00)
--- NOTE | 2019-11-21 10:34 | Physical Therapy Tx Note ---
Physical Therapy Tx Note - Treatment Note Tolerated: Good Total Time Spent With Patient: 25 Physical Therapy Tx Note: Detail (The patient was in bed when PT arrived. The patient was independent with supine to and from sit transfer.The patient complained of level 5 pain initially.The patient had complaints of level 7 pain after treatment. The patient ambulated to the bathroom ( 11 feet) WBAT on the R LE independently. The patient was independent with toilet transfer with use of grab bar. The patient ambulated with front wheeled walker a distance of 60 feet x 1 WBAT on the R LE. independently. The patient ambulated on 3 steps with use of folded walker and one cane with supervision for safety and CG descending stairs due to pain with weight bearing on R LE. The patient's observed the patient ambulating on stairs and stated she felt comfortable gaurding him on stairs. The patient completed TKA HEP including: heel slides, ankle pumps, quad sets, hamstring sets, gluteal sets, SLR using a strap. The patient has met all inpt. gaosl and is discharged from inpt. PT.) Physical Therapy Problem List: Detail (1. Requires assist for bed mobility and transfers. 2. Difficulty walking. 3. Impaired ROM and strength in R LE.) Physical Therapy Goals: 1. Pt will safely get in/out of bed w/SBA.(Goal Met). 2. Pt will safely perform bed/chair/commod transfers w/SBA.(Goal Met). 3. Pt will safely ambulate household distances and ascend/descend three steps w/CGA with front or four wheeled walker.(Goal Met). 4. Pt will be independent in TKA exercise program for IP. (Goal Met) Physical Therapy Plan: The patient is discharged from inpt. PT and is to continue with Outpatient PT.
--- NOTE | 2019-11-21 11:39 | Rehab Evaluation ---
Patient Information - Patient Information Diagnosis: OA R knee, s/o TKA Ordered Treatment: OT Evaluate and Treat Status: Initial Evaluation Surgery: Yes (R TKA) Date of Surgery: 11/20/19 History: Detail (Pt describes progressive degeneration of R knee over several years.) Past Medical/Surgical Hx: PAST MEDICAL/SURGICAL HISTORY Past Surgical History right rotator cuff repair left achelies tendon repair tooth extraction 10/01/2019 EGD/colonoscopy [facility] PMH - Respiratory Hx Respiratory Disorders Yes Hx Asthma No Hx Bronchitis Yes: hx of 20 yrs ago Hx Chronic Obstructive No Pulmonary Disease (COPD) Hx Pneumonia No Hx Pulmonary Embolism Yes: hx of 20 yrs ago Hx Tuberculosis No PMH - Cardiovascular Hx Cardiovascular Disorders Yes Hx Abnormal EKG No Hx Cardiac Catheterization Yes: came back normal Hx Chest Pain No Hx Congestive Heart Failure No Hx Deep Vein Thrombosis No Hx Edema No Hx Heart Attack No Hx Hypertension Yes Hx Hypotension Yes Hx Irregular Heartbeat No Hx Palpitations No Hx Pacemaker/Defibrillator No Hx Coronary Artery Disease No Hx Coronary Artery Bypass No Graft Hx Coronary Stent No Hx Rheumatic Fever No Hx Heart Murmur No Exercise Tolerance Good Hx Transient Ischemic Attacks No (TIA) Residual Deficits from CVA No Hx of Migraines No Comment: high cholesterol PMH - Neuro Hx Neurological Disorders No Hx Cerebrovascular Accident No Hx Dizziness No Hx Headaches No Hx Parkinson's Disease No Hx Seizures No Hx Speech Problem No Hx Syncope No Hx Transient Ischemic Attacks No (TIA) Hx Weakness No PMH - GI Hx Gastrointestinal Disorders Yes Hx Abdominal Pain No Hx Diverticulitis No Hx Gastroesophageal Reflux Yes Hx Hepatitis/Jaundice No Hx Irritable Bowel No Hx Liver Disease No Hx Nausea/Vomiting No Hx Pancreatitis No Hx Ulcer Yes Hx Weight Loss/Weight Gain Yes: RECENT 20 LB WT LOSS UNKNOWN ETIOLOGY Hx Cirrhosis No PMH - Hx Genitourinary Disorders No Hx Bladder Problem No Hx Dialysis No Hx Kidney Stones No Hx Prostate Problems No Hx Renal Disease No Hx Urinary Tract Infection No PMH - Endocrine Hx Endocrine Disorders Yes Hx Diabetes Yes: NIDDM Hx Thyroid Disease No Hx of NIDDM Yes Comment: BLOOD SUGARS 150-160 A1C 6.7 - 7.0 PMH - Musculoskeletal Hx Musculoskeletal Disorders Yes Hx Arthritis Yes Comment: tendon surgery PMH - Psych Hx Psychiatric Problems Yes Hx Depression Yes: hx of when divorce PMH - Hematology/Oncology Hx Hematology/Oncology Yes Disorders Hx Cancer Yes: basal cell ca on back Premorbid Status: Detail (Pt was requiring single tip cane for ambulation due to pain and instability in R knee. He reports that he began experiencing L shoulder pain (which has a preexisting rotator cuff tear) recently as his R knee has gotten worse. 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 Patient was independent with ADLs [employer]GING DIES.) Social History: Detail (Pt lives with spouse in a single story home with basement. There are three steps to enter the home, with a single handrail on the L to enter. He has tub/shower combination and has a tub bench that overlaps edge of tub. He has elevated toilet and no grab bars. He borrowed a 4 wheeled walker to use post-operatively; will bring it in tomorrow to see if it will be practical for patient. 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 Pt's spouse will be able to assist with LB drsg if needed for shoe and sock don.) Precautions: [place], Fall - Time With Patient Total Time Spent With Patient (Min): 20 Treatment Procedures: Detail (OT eval low) Subjective Information - Subjective Information Per Patient Objective Data - Pain Pain Present: Yes Pain Intensity: 2 (Pt 2/10 while resting in supine prior to eval, moved up to 8/10 with bed mobility and LB drsg) Pain Scale Used: Numeric (1 - 10) - Mental Status Patient Orientation: Oriented x3 - Visual Perception Appears within normal limits for therapeutic activities - ROM Not within normal limits (RUE WNL; Pt has rotator cuff tear per subjective report in LUE and shld flex and abd limited to ~125 deg. All other ROM WNL bilaterally.) - Strength/Tone Within normal limits (BUE's) - Bed Mobility Independent (supine <> short sit edge of bed), Needs Assist - Transfers Independent (sit<>stand t/f's) - Balance Balance Sitting: Good - ADL's/IADL's Detail (Patient educated on and demo'd understanding of modified LB drsg technique. Patient independent with LB drsg. He was provided a handout with a summary of LB drsg techniques as well as tips for maneuvering in kitchen with walker. Patient verbalized understanding.) Therapy Assessment - Therapy Assessment Detail (Pt safe and independent with modified LB drsg technique. He will contact OT if he has any concerns once home.) Patient Education - Patient Education Teaching Topic: Other (Modified LB drsg) Response: Return Demonstration Teaching Method: Discussion Teaching Recipient: Patient Barriers To Learning: None Problem List - Problem List Physical Therapy Problem List: Detail (1. Requires assist for bed mobility and transfers. 2. Difficulty walking. 3. Impaired ROM and strength in R LE.) Goals - Goals Physical Therapy Goals: 1. Pt will safely get in/out of bed w/SBA.(Goal Met). 2. Pt will safely perform bed/chair/commod transfers w/SBA.(Goal Met). 3. Pt will safely ambulate household distances and ascend/descend three steps w/CGA with front or four wheeled walker.(Goal Met). 4. Pt will be independent in TKA exercise program for IP. (Goal Met) Prognosis - Prognosis Good Plan - Plan Physical Therapy Plan: The patient is discharged from inpt. PT and is to continue with Outpatient PT. Occupational Therapy Plan: Patient to be discharged from inpatient OT at this time.
--- NOTE | 2019-11-21 13:21 | Discharge Summary ---
DATE OF ADMISSION: 11/20/2019 DATE OF DISCHARGE: 11/21/2019 ADMITTING DIAGNOSIS: OSTEOARTHRITIS OF THE RIGHT KNEE. DISCHARGE DIAGNOSIS: OSTEOARTHRITIS OF THE RIGHT KNEE. OPERATIVE PROCEDURE: Elective right total knee arthroplasty. This 69-year-old male was admitted to the hospital for elective total knee arthroplasty of the right knee. He tolerated the operative procedure well. The drain was removed on the first postoperative day. He had slightly more pain than expected, but the pain was controlled with Percocet and Ultram. He did clear physical therapy and was ready for discharge. He had no evidence of DVT. He said that the morning of discharge he had some back pain which occasionally happens when his "back goes out", but he was still ambulating. He did not admit to any chest pain or shortness of breath. He had no evidence of DVT on examination prior to discharge. The patient will be discharged today with outpatient physical therapy. He was instructed to wear his CATHERINE hose during the day and remove them at night. He was given a prescription for Percocet 5 mg/325 mg #40 one every six hours as necessary for pain, Tramadol 50 mg #60 one or two every six hours as necessary for pain and aspirin 325 mg daily for four weeks. Routine wound care instructions were given. Should he have any problems prior to being seen he was instructed to call my office. JOB NUMBER: [id number] MTDD
== END 2019-11-21 13:23 | disposition home or self-care (01) ==
LOC: SUR 07:06 → MEDSURG 12:07 → SUR 11-21 13:23
PROVIDERS: ATTEND Orthopaedic Surgery
DX: M17.11 Unilateral primary osteoarthritis, right knee (principal); J44.9 Chronic obstructive pulmonary disease, unspecified; I10 Essential (primary) hypertension; E78.00 Pure hypercholesterolemia, unspecified; K21.9 Gastro-esophageal reflux disease without esophagitis; E11.9 Type 2 diabetes mellitus without complications
CPT/HCPCS: 36416; 76942; 82948; 85014; 85018; 85025; J2405; J7120